=== PATIENT | male | born 1930 | race Caucasian/White ===

== ENCOUNTER 2017-03-18 11:04 | Emergency (ER) | payer OTHER ==
[~2017-03-18] VITALS: Ht 170.2 cm; Wt 50.0 kg
[~2017-03-18 11:04] MED LIST: PREV30TA3 NG; VENTAER INH
[2017-03-18 11:05] VITALS: BP 115/56; PULSE 70; RESP 16; TEMP 97.7; O2SAT 95
--- NOTE | 2017-03-18 11:26 | PD ---
HPI Chief Complaint: Chest Pain Time Seen by Provider: 11:10 Travel History International Travel<30 days: No Contact w/Intl Traveler<30days: No Traveled to known affect area: No History of Present Illness HPI Patient comes in complaining of left-sided chest pain that has been going on intermittently for a year. Patient describes pain as burning like in nature and radiates into his abdomen. Patient denies doing anything for this. Denies anything making it better or worse. Patient states pain got worse last night which is why he came to the ER today. Patient has a history of lung cancer and states he is not receiving treatment for this, because he does not want treatment for this. Patient reports associated shortness of breath. Denies any fevers, headaches, numbness or tingling anywhere, dizziness, or weakness. PFSH Past Medical History Hx Anticoagulant Therapy: No Arthritis: Yes Asthma: No Autoimmune Disease: No Blood Disorders: No Heart Rhythm Problems: No Cancer: Yes (THROAT, LUNG) Cardiac Catheterization: Yes Cardiovascular Problems: Yes High Cholesterol: Yes Chemotherapy: Yes Chest Pain: Yes Congestive Heart Failure: No COPD: Yes Cerebrovascular Accident: No Coronary Artery Disease: Yes Diabetes: No Diminished Hearing: No Endocrine: No GERD: Yes Glaucoma: No Genitourinary: No Headaches: No Hepatitis: No Hiatal Hernia: No Heparin Induced Thrombocytopen: Yes Hypertension: Yes Immune Disorder: No Kidney Stones: No Medical other: Yes (DJD) Musculoskeletal: Yes Neurologic: No Psychiatric: No Reproductive: No Respiratory: No Immunizations Current: Yes Migraines: No Myocardial Infarction: Yes Pancreatitis: Yes Radiation Therapy: No Renal Failure: No Seizures: No Sickle Cell Disease: No Sleep Apnea: No Thyroid Disease: No Ulcer: Yes Influenza Vaccination: No PNEUMOCCOCAL Vaccine (Year): 2 Past Surgical History Abdominal Surgery: Yes (appendectomy, G TUBE INSERTED) AICD: No Appendectomy: Yes Arteriovenous Shunt: No Cardiac Surgery: Yes (TRIPLE BYPASS 2006) Cholecystectomy: No Coronary Artery Bypass Graft: Yes (TRIPLE BYPASS) Ear Surgery: No Endocrine Surgery: No Eye Surgery: No Genitourinary Surgery: No Gynecologic Surgery: No Insulin Pump: No Joint Replacement: No Neurologic Surgery: No Oral Surgery: No Pacemaker: No Thoracic Surgery: No Other Surgery: Yes (CABG, APPENDECTOMY) Social History Alcohol Use: No Tobacco Use: Yes (1 PPD) Substance Use: No Allergies-Medications (Allergen,Severity, Reaction): Coded Allergies: levofloxacin (Unverified Allergy, Severe, Itching, 03/18/17) Reported Meds & Prescriptions Reported Meds & Active Scripts Active Tylenol-Codeine #3 (Acetaminophen-Codeine) 300-30 mg Tab 1 Tab PO Q12HR PRN Review of Systems Except as stated in HPI: all other systems reviewed are Neg Physical Exam Narrative GENERAL: Well-developed, under nourished, in no acute distress, and non-ill appearing. SKIN: Focused skin assessment warm and dry. HEAD: Atraumatic. Normocephalic. EYES: Pupils equal and round. EOMI. No scleral icterus. No injection or drainage. ENT: No nasal bleeding or discharge. Mucous membranes pink and moist. NECK: Trachea midline. Supple. No nuclear rigidity. CARDIOVASCULAR: Regular rate and rhythm. Murmur appreciated. RESPIRATORY: No accessory muscle use. No respiratory distress. Scant wheezing throughout. Breath sounds equal bilaterally. GASTROINTESTINAL: Abdomen soft, non-tender, nondistended, and no guarding. Hepatic and splenic margins not palpable. Normal bowel sounds 4. No pulsatile mass. MUSCULOSKELETAL: No obvious deformities. No clubbing. No cyanosis. No edema. Full range of motion. NEUROLOGICAL: Awake and alert. No obvious cranial nerve deficits. Motor grossly within normal limits. Normal speech. PSYCHIATRIC: Appropriate mood and affect; insight and judgment normal. Data Data Last Documented VS Vital Signs Date Time Temp Pulse Resp B/P (MAP) Pulse Ox O2 Delivery O2 Flow Rate FiO2 03/18/17 13:36 03/18/17 11:05 97.7 70 16 95 Orders Orders Electrocardiogram (03/18/17 ) Electrocardiogram (03/18/17 11:20) Ckmb (Isoenzyme) Profile (03/18/17 11:20) Complete Blood Count With Diff (03/18/17 11:20) Comprehensive Metabolic Panel (03/18/17 11:20) Magnesium (Mg) (03/18/17 11:20) Prothrombin Time / Inr (Pt) (03/18/17 11:20) Act Partial Throm Time (Ptt) (03/18/17 11:20) Troponin I (03/18/17 11:20) Lipase (03/18/17 11:20) Chest, Single Ap (03/18/17 11:20) Ecg Monitoring (03/18/17 11:20) Bilateral Bp Monitoring (03/18/17 11:20) Iv Access Insert/Monitor (03/18/17 11:20) Oximetry (03/18/17 11:20) Oxygen Administration (03/18/17 11:20) Sodium Chloride 0.9% Flush (Ns Flush) (03/18/17 11:30) Famotidine Inj (Pepcid Inj) (03/18/17 11:30) Aspirin Chew (Aspirin Chew) (03/18/17 11:30) Morphine Inj (Morphine Inj) (03/18/17 11:30) Ed Discharge Order (03/18/17 12:49) Labs Laboratory Tests Test 03/18/17 11:28 White Blood Count 7.3 TH/MM3 Red Blood Count 2.72 MIL/MM3 Hemoglobin 9.3 GM/DL Hematocrit 28.2 % Mean Corpuscular Volume 103.4 FL Mean Corpuscular Hemoglobin 34.1 PG Mean Corpuscular Hemoglobin Concent 32.9 % Red Cell Distribution Width 14.6 % Platelet Count 118 TH/MM3 Mean Platelet Volume 11.3 FL Neutrophils (%) (Auto) 82.4 % Lymphocytes (%) (Auto) 9.4 % Monocytes (%) (Auto) 5.9 % Eosinophils (%) (Auto) 1.6 % Basophils (%) (Auto) 0.7 % Neutrophils # (Auto) 6.0 TH/MM3 Lymphocytes # (Auto) 0.7 TH/MM3 Monocytes # (Auto) 0.4 TH/MM3 Eosinophils # (Auto) 0.1 TH/MM3 Basophils # (Auto) 0.1 TH/MM3 CBC Comment DIFF FINAL Differential Comment Prothrombin Time 10.7 SEC Prothromb Time International Ratio 1.0 RATIO Activated Partial Thromboplast Time 29.3 SEC Blood Urea Nitrogen 45 MG/DL Creatinine 1.15 MG/DL Random Glucose 108 MG/DL Total Protein 7.0 GM/DL Albumin 2.9 GM/DL Calcium Level 8.5 MG/DL Magnesium Level 2.6 MG/DL Alkaline Phosphatase 213 U/L Aspartate Amino Transf (AST/SGOT) 41 U/L Alanine Aminotransferase (ALT/SGPT) 50 U/L Total Bilirubin 0.3 MG/DL Sodium Level 138 MEQ/L Potassium Level 4.8 MEQ/L Chloride Level 106 MEQ/L Carbon Dioxide Level 26.1 MEQ/L Anion Gap 6 MEQ/L Estimat Glomerular Filtration Rate 60 ML/MIN Total Creatine Kinase 56 U/L Troponin I 0.03 NG/ML Lipase 313 U/L MDM Medical Decision Making Medical Screen Exam Complete: Yes Emergency Medical Condition: Yes Interpretation(s) EKG reviewed by Dr. Whiting shows sinus rhythm with ventricular 62. No STEMI. Last Impressions Chest X-Ray 03/18/17 1120 Signed Impressions: Service Date/Time: Saturday, March 18, 2017 11:34 - CONCLUSION: No acute disease. Chronic scarring is again noted in the lung apices. Alex Bautista MD Differential Diagnosis Acute coronary syndrome, pancreatitis, pneumonia, metabolic disturbance, chronic pain, other Narrative Course Patient in no obvious distress upon re-evaluation. All pertinent laboratory/ Radiology result(s) discussed with patient. Discussed patient with Dr. Whiting, who saw and evaluated the patient and found patient is just wanting pain control and recommends if labs are at patient's baseline to give patient prescription for short course of pain medication until he is able get back in with his primary care doctor. Labs appear at his baseline and some have improved from previous visit. Patient given prescription for Tylenol 3 for pain control. Any questions/concerns in reference to patient diagnosis/ condition discussed and clarified prior to patient's discharge. Reinforced sheer importance of close follow up with patient's primary physician or primary care clinic. Instructed patient to return to ED immediately, if symptoms return/ worsen. Patient showed understanding of above instructions. Further instructions and recommendations were detailed in discharge paperwork. Patient ambulated without difficulty out of ED at discharge. Diagnosis Primary Impression: Chronic pain Qualified Codes: G89.3 - Neoplasm related pain (acute) (chronic) Patient Instructions: Chronic Pain (ED), General Instructions Additional Instructions: Follow-up with your primary care physician this week for additional pain control. Take all medication as prescribed. Return to the emergency department if symptoms get worse. Med/Other Pt SpecificInfo: Prescription(s) given Scripts Acetaminophen-Codeine (Tylenol-Codeine #3) 300-30 mg Tab 1 TAB PO Q12HR Y for PAIN, #7 TAB 0 Refills Prov: Sheeba Whiting MD 03/18/17 Disposition: 01 DISCHARGE HOME Condition: Stable Jose Cruz Bernal Mar 18, 2017 11:26
[2017-03-18] MEDS ORDERED: ASPIRIN 81 MG CHEW TAB PO ONE (11:30)
[2017-03-18] MEDS ORDERED: SODIUM CHLORIDE 0.9% FLUSH 10 ML FLUSH IVF PRN (11:30)
[2017-03-18] MEDS ORDERED: FAMOTIDINE 20 MG/2 ML VIAL IV PUSH ONE (11:30)
[2017-03-18] MEDS ORDERED: MORPHINE SULFATE 2 MG/ML INJ IV PUSH ONE (11:30)
--- NOTE | 2017-03-18 11:34 | PD ---
Physical Exam Date Seen by Provider: Mar 18, 2017 Time Seen by Provider: 11:20 Narrative This patient presents with chest pain which is been going on for over a year. He was seen here in December 2015 for same. Admission to the chest pain center was offered but declined. I asked the patient what he was hoping to gain from his visit with us today. He reports that he is here for pain control. He states that he has been out of his pain medication for a long time. He states that he is normally prescribed pain medication through the [facility]. He states that he has been told that he is too old to undergo any aggressive treatment. Therefore, he is not interested in admission to the hospital. The patient also reports to me that he would like for us to check his feeding tube. He states that the feeding tube has been in for a long time and nobody is checked it. He states that he has never cleaned around it at home himself. He reports that he gets all of his nutrition through the feeding tube due to dysphagia. Data Data Last Documented VS Vital Signs Date Time Temp Pulse Resp B/P (MAP) Pulse Ox O2 Delivery O2 Flow Rate FiO2 03/18/17 11:05 97.7 70 16 115/56 (75) 95 Orders Orders Electrocardiogram (03/18/17 ) Electrocardiogram (03/18/17 11:20) Ckmb (Isoenzyme) Profile (03/18/17 11:20) Complete Blood Count With Diff (03/18/17 11:20) Comprehensive Metabolic Panel (03/18/17 11:20) Magnesium (Mg) (03/18/17 11:20) Prothrombin Time / Inr (Pt) (03/18/17 11:20) Act Partial Throm Time (Ptt) (03/18/17 11:20) Troponin I (03/18/17 11:20) Lipase (03/18/17 11:20) Chest, Single Ap (03/18/17 11:20) Ecg Monitoring (03/18/17 11:20) Bilateral Bp Monitoring (03/18/17 11:20) Iv Access Insert/Monitor (03/18/17 11:20) Oximetry (03/18/17 11:20) Oxygen Administration (03/18/17 11:20) Sodium Chloride 0.9% Flush (Ns Flush) (03/18/17 11:30) Famotidine Inj (Pepcid Inj) (03/18/17 11:30) Aspirin Chew (Aspirin Chew) (03/18/17 11:30) Morphine Inj (Morphine Inj) (03/18/17 11:30) MDM Medical Record Reviewed: Yes Supervised Visit with KYLEE: Yes Narrative Course I, Dr. Whiting, have reviewed the advance practice practitioner's documentation and am in agreement, met with the patient face to face, made the diagnosis, and the medical decision making was done by me. *My assessment and Findings: This is a thin, cachectic, disheveled, chronically ill-appearing man who does not appear to be in any acute distress. He has caked old skin and skin oils around his feeding tube. However, there is no purulent drainage and no surrounding skin is not red or hot. Our plan will be to control his pain. He will then be discharged with instructions to follow up at the [facility] for continued pain management. Please see Rod Bernal PA-C's note for results of laboratory and radiographic evaluation, ED course, final diagnosis and disposition Scripts No Active Prescriptions or Reported Meds Sheeba Whiting MD Mar 18, 2017 11:34
[2017-03-18 11:44] LABS: BASOPHIL # 0.1 TH/MM3 (0-0.2); BASOPHIL % 0.7 % (0.0-2.0); EOSINOPHIL # 0.1 TH/MM3 (0-0.4); EOSINOPHIL % 1.6 % (0.0-4.0); HEMATOCRIT 28.2 % (39.0-51.0); HEMOGLOBIN 9.3 GM/DL (13.0-17.0); LYMPH % 9.4 % (9.0-44.0); LYMPHOCYTE # 0.7 TH/MM3 (1.0-4.8); MEAN CELL VOLUME 103.4 FL (80.0-100.0); MEAN CORPUSCULAR HEMOGLOBIN 34.1 PG (27.0-34.0); MEAN CORPUSCULAR HGB CONC 32.9 % (32.0-36.0); MEAN PLATELET VOLUME 11.3 FL (7.0-11.0); MONO % 5.9 % (0.0-8.0); MONOCYTE # 0.4 TH/MM3 (0-0.9); NEUT % 82.4 % (16.0-70.0); PLATELET COUNT 118 TH/MM3 (150-450); RED BLOOD COUNT 2.72 MIL/MM3 (4.50-5.90); RED CELL DISTRIBUTION WIDTH 14.6 % (11.6-17.2); WHITE BLOOD COUNT 7.3 TH/MM3 (4.0-11.0)
[2017-03-18 11:57] LABS: PROTHROMBIN TIME - PATIENT 10.7 SEC (9.8-11.6)
[2017-03-18 12:06] LABS: ALBUMIN 2.9 GM/DL (3.4-5.0); ALT (GPT) 50 U/L (12-78); AST (GOT) 41 U/L (15-37); BICARBONATE 26.1 MEQ/L (21.0-32.0); BLOOD UREA NITROGEN 45 MG/DL (7-18); CALCIUM 8.5 MG/DL (8.5-10.1); CHLORIDE 106 MEQ/L (98-107); CREATININE 1.15 MG/DL (0.60-1.30); GLOMERULAR FILTRATION RATE 60 ML/MIN (>89); GLUCOSE,RANDOM 108 MG/DL (74-106); LIPASE 313 U/L (73-393); MAGNESIUM 2.6 MG/DL (1.5-2.5); SODIUM (NA) 138 MEQ/L (136-145)
[2017-03-18 12:10] LABS: ALKALINE PHOSPHATASE 213 U/L (45-117); TOTAL BILIRUBIN ADULT 0.3 MG/DL (0.2-1.0); TROPONIN I 0.03 NG/ML (0.02-0.05)
--- NOTE | 2017-03-18 12:13 | RADRPT ---
EXAM DATE/TIME: 03/18/2017 11:34 [facility] COMPARISON: CHEST SINGLE AP, April 14, 2016, 9:06. INDICATIONS : Chest pain. MEDICAL HISTORY : Cardiovascular disease. SURGICAL HISTORY : CABG. ENCOUNTER: Initial ACUITY: 1 day PAIN SCORE: 7/10 LOCATION: Bilateral chest FINDINGS: A single view of the chest demonstrates the lungs to be symmetrically aerated without evidence of mas s, infiltrate or effusion. Biapical pleural-parenchymal changes again noted consistent with scarring. The cardiomediastinal contours are unremarkable. Osseous structures are intact. The patient is sta tus post median sternotomy. There is a mild scoliosis with degenerative changes. CONCLUSION: No acute disease. Chronic scarring is again noted in the lung apices. Alex Bautista MD on March 18, 2017 at 12:10 Board Certified Radiologist. This report was verified electronically.
[2017-03-18] MEDS ORDERED: TYLETAB34 PO (12:48)
--- NOTE | 2017-03-19 12:18 | EKG ---
Date Performed: 03/18/2017 Time Performed: 11:22:26 PTAGE: 86 years EKG: Sinus rhythm MARKED LEFT AXIS DEVIATION ABNORMAL ECG Compared to prior tracing no significant change PREVIOUS TRACING : 01/08/2016 15.11 DOCTOR: Mahin Camilo Interpretating Date/Time 03/19/2017 12:13:38
== END 2017-03-18 13:36 | disposition home or self-care (01) ==
LOC: NEPE 11:04
DX: G89.3 Neoplasm related pain (acute) (chronic) (principal); R06.02 Shortness of breath; J44.9 Chronic obstructive pulmonary disease, unspecified; I10 Essential (primary) hypertension; K21.9 Gastro-esophageal reflux disease without esophagitis; R94.31 Abnormal electrocardiogram [ECG] [EKG]; Z72.0 Tobacco use
CPT/HCPCS: 71010; 80053; 82550; 83690; 83735; 84484; 85025; 85610; 85730; 93005; 96374; 96375; 99285; J2270

== ENCOUNTER 2017-04-11 12:50 | Inpatient (IN) | payer OTHER ==
[~2017-04-11] VITALS: Ht 167.6 cm; Wt 52.5 kg
[2017-04-11] VITALS (16 sets, daily range): BP systolic 140–165; BP diastolic 63–90; PULSE 65–80; RESP 13–20; TEMP 97.8–98.5; O2SAT 95–100
[~2017-04-11 12:50] MED LIST changes: -PREV30TA3 NG; +TYLETAB34 PO; -VENTAER INH
[2017-04-11] MEDS ORDERED: ONDANSETRON HCL 4 MG/2 ML VIAL IV PUSH ONE (13:15)
[2017-04-11] MEDS ORDERED: SODIUM CHLORID 0.9% 500 ML INJ 500 ML IV ONE ×2 (13:15→17:15)
[2017-04-11] MEDS ORDERED: SODIUM CHLORIDE 0.9% FLUSH 10 ML FLUSH IV FLUSH PRN ×2 (13:15→16:30)
--- NOTE | 2017-04-11 13:20 | PD ---
HPI Chief Complaint: Pain: Acute or Chronic Time Seen by Provider: 13:05 Travel History International Travel<30 days: No Contact w/Intl Traveler<30days: No Traveled to known affect area: No History of Present Illness HPI 86-year-old thin, chronically ill-appearing male presents to the emergency department for evaluation of bilateral chest pain. Patient states he has been having this chest pain for over a year. He states that he has lung cancer and does not have any pain medication. He states that his primary care physician has not prescribed him any pain medication. 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 Patient states he is not undergoing any chemotherapy or radiation therapy. He states that he is too elderly for any aggressive treatment. The patient apparently was with the roommates and they got into an argument. The patient states that he feels safe at his house. He denies any fevers or chills. He reports chronic vomiting and chronic abdominal pain as well. Patient states he is not currently on any prescribed medications. Severity is moderate. No alleviating or exacerbating factors. PFSH Past Medical History Hx Anticoagulant Therapy: No Arthritis: Yes Asthma: No Autoimmune Disease: No Blood Disorders: No Heart Rhythm Problems: No Cancer: Yes (THROAT, LUNG) Cardiac Catheterization: Yes Cardiovascular Problems: Yes High Cholesterol: Yes Chemotherapy: Yes Chest Pain: Yes Congestive Heart Failure: No COPD: Yes Cerebrovascular Accident: No Coronary Artery Disease: Yes Diabetes: No Diminished Hearing: No Endocrine: No GERD: Yes Glaucoma: No Genitourinary: No Headaches: No Hepatitis: No Hiatal Hernia: No Heparin Induced Thrombocytopen: Yes Hypertension: Yes Immune Disorder: No Kidney Stones: No Medical other: Yes (DJD) Musculoskeletal: Yes Neurologic: No Psychiatric: No Reproductive: No Respiratory: Yes (LUNG CANCER) Immunizations Current: Yes Migraines: No Myocardial Infarction: Yes Pancreatitis: Yes Radiation Therapy: No Renal Failure: No Seizures: No Sickle Cell Disease: No Sleep Apnea: No Thyroid Disease: No Ulcer: Yes Tetanus Vaccination: Never Vaccinated PNEUMOCCOCAL Vaccine (Year): 2 Past Surgical History Abdominal Surgery: Yes (appendectomy, G TUBE INSERTED) AICD: No Appendectomy: Yes Arteriovenous Shunt: No Cardiac Surgery: Yes (TRIPLE BYPASS 2006) Cholecystectomy: No Coronary Artery Bypass Graft: Yes (TRIPLE BYPASS) Ear Surgery: No Endocrine Surgery: No Eye Surgery: No Genitourinary Surgery: No Gynecologic Surgery: No Insulin Pump: No Joint Replacement: No Neurologic Surgery: No Oral Surgery: No Pacemaker: No Thoracic Surgery: No Other Surgery: Yes (CABG, APPENDECTOMY) Social History Alcohol Use: No Tobacco Use: Yes (1 PPD) Substance Use: No Allergies-Medications (Allergen,Severity, Reaction): Coded Allergies: levofloxacin (Unverified Adverse Reaction, Mild, Itching, 04/11/17) Reported Meds & Prescriptions Reported Meds & Active Scripts Active Tylenol-Codeine #3 (Acetaminophen-Codeine) 300-30 mg Tab 1 Tab PO Q12HR PRN Review of Systems Except as stated in HPI: all other systems reviewed are Neg Physical Exam Narrative GENERAL: Thin, chronically ill-appearing elderly male patient, afebrile. SKIN: Focused skin assessment warm/dry. HEAD: Normocephalic. Atraumatic. EYES: No scleral icterus. No injection or drainage. NECK: Supple, trachea midline. No JVD or lymphadenopathy. CARDIOVASCULAR: Regular rate and rhythm without murmurs, gallops, or rubs. RESPIRATORY: Breath sounds equal bilaterally. No accessory muscle use. Lungs sounds are clear to auscultation. GASTROINTESTINAL: Abdomen soft and nondistended. He has generalized tenderness to palpation. MUSCULOSKELETAL: No cyanosis, or edema. BACK: Nontender without obvious deformity. No CVA tenderness. RECTAL EXAM: No masses or tenderness, stool is dark, tarry. Hemoccult is positive. This exam was done with RN at bedside. Data Data Last Documented VS Vital Signs Date Time Temp Pulse Resp B/P (MAP) Pulse Ox O2 Delivery O2 Flow Rate FiO2 04/11/17 15:50 70 18 140/63 (88) 96 Nasal Cannula 2.00 04/11/17 13:11 98.4 Orders Orders Complete Blood Count With Diff (04/11/17 13:08) Comprehensive Metabolic Panel (04/11/17 13:08) Lipase (04/11/17 13:08) Prothrombin Time / Inr (Pt) (04/11/17 13:08) Act Partial Throm Time (Ptt) (04/11/17 13:08) Urinalysis - C+S If Indicated (04/11/17 13:08) Iv Access Insert/Monitor (04/11/17 13:08) Ecg Monitoring (04/11/17 13:08) Oximetry (04/11/17 13:08) Sodium Chloride 0.9% Flush (Ns Flush) (04/11/17 13:15) Electrocardiogram (04/11/17 13:08) Creatine Kinase (Cpk) (04/11/17 13:08) Troponin I (04/11/17 13:08) Sodium Chlorid 0.9% 500 Ml Inj (Ns 500 M (04/11/17 13:15) Ondansetron Inj (Zofran Inj) (04/11/17 13:15) Chest, Single Ap (04/11/17 ) Ct Abd/Pel W Iv Contrast(Rout) (04/11/17 ) Morphine Inj (Morphine Inj) (04/11/17 13:30) Type And Screen (04/11/17 14:08) Red Blood Cells (Rbc) (04/11/17 14:08) Blood Product Administration (04/11/17 14:08) Sodium Chlor 0.9% 250 Ml Inj (Ns 250 Ml (04/11/17 14:15) Pantoprazole Inj (Protonix Inj) (04/11/17 14:15) Calcium Gluconate Inj (Calcium Gluconate (04/11/17 14:15) Insulin Human Regular Inj (Novolin R Inj (04/11/17 14:30) Dextrose 50% In [place] (Vial) Inj (D50w (Vi (04/11/17 14:15) Sodium Bicarbonate 8.4% Inj (Sodium Bica (04/11/17 14:15) Albuterol Concentrated Neb (Albuterol Co (04/11/17 14:30) Labs Laboratory Tests Test 04/11/17 13:16 04/11/17 14:15 White Blood Count 13.2 TH/MM3 Red Blood Count 1.27 MIL/MM3 Hemoglobin 4.5 GM/DL Hematocrit 14.1 % Mean Corpuscular Volume 111.4 FL Mean Corpuscular Hemoglobin 35.4 PG Mean Corpuscular Hemoglobin Concent 31.8 % Red Cell Distribution Width 18.7 % Platelet Count 122 TH/MM3 Mean Platelet Volume 11.1 FL Neutrophils (%) (Auto) 91.0 % Lymphocytes (%) (Auto) 3.4 % Monocytes (%) (Auto) 5.4 % Eosinophils (%) (Auto) 0.1 % Basophils (%) (Auto) 0.1 % Neutrophils # (Auto) 12.1 TH/MM3 Lymphocytes # (Auto) 0.5 TH/MM3 Monocytes # (Auto) 0.7 TH/MM3 Eosinophils # (Auto) 0.0 TH/MM3 Basophils # (Auto) 0.0 TH/MM3 CBC Comment AUTO DIFF Differential Total Cells Counted 100 Neutrophils % (Manual) 86 % Band Neutrophils % 6 % Lymphocytes % 6 % Monocytes % 2 % Neutrophils # (Manual) 12.1 TH/MM3 Differential Comment FINAL DIFF MANUAL Platelet Estimate LOW Platelet Morphology Comment NORMAL Polychromasia 3.0 % Prothrombin Time 11.2 SEC Prothromb Time International Ratio 1.0 RATIO Activated Partial Thromboplast Time 25.0 SEC Blood Urea Nitrogen 79 MG/DL Creatinine 1.52 MG/DL Random Glucose 111 MG/DL Total Protein 5.9 GM/DL Albumin 2.4 GM/DL Calcium Level 7.7 MG/DL Alkaline Phosphatase 150 U/L Aspartate Amino Transf (AST/SGOT) 44 U/L Alanine Aminotransferase (ALT/SGPT) 57 U/L Total Bilirubin 0.3 MG/DL Sodium Level 140 MEQ/L Potassium Level 5.5 MEQ/L Chloride Level 111 MEQ/L Carbon Dioxide Level 22.8 MEQ/L Anion Gap 6 MEQ/L Estimat Glomerular Filtration Rate 44 ML/MIN Total Creatine Kinase 92 U/L Troponin I 0.63 NG/ML Lipase 252 U/L Urine Color YELLOW Urine Turbidity CLEAR Urine pH 5.0 Urine Specific [place] 1.017 Urine Protein 30 mg/dL Urine Glucose (UA) NEG mg/dL Urine Ketones NEG mg/dL Urine Occult Blood NEG Urine Nitrite NEG Urine Bilirubin NEG Urine Urobilinogen LESS THAN 2.0 MG/DL Urine Leukocyte Esterase NEG Urine RBC LESS THAN 1 /hpf Urine WBC 1 /hpf Urine Squamous Epithelial Cells <1 /hpf Urine Hyaline Casts 10 /lpf Urine Mucus FEW /lpf Microscopic Urinalysis Comment CULT NOT INDICATED MDM Medical Decision Making Medical Screen Exam Complete: Yes Emergency Medical Condition: Yes Medical Record Reviewed: Yes Interpretation(s) chest x-ray - CONCLUSION: 1. No acute abnormality or significant interval change. CT abdomen/pelvis - CONCLUSION: Patient's had a cholecystectomy and likely ERCP with some air in the biliary tree. No free fluid or or free air is identified. The mesenteric vein is quite tortuous new since December 2014 of uncertain significance. G-tube in good position. Air space disease right lower lobe atelectasis versus pneumonia Differential Diagnosis chronic pain vs. pneumonia vs. ACS vs. electrolyte abnormality vs. dehydration vs. pancreatitis vs. diverticulitis vs. UTI vs. pyelonephritis Narrative Course 86-year-old male presents to the emergency department for evaluation of bilateral chest pain for 1 year. On exam, he also has diffuse tenderness to palpation throughout his abdomen. He reports history of throat cancer and has lung cancer as well. He is not currently undergoing treatment. EKG, CBC, CMP, Lipase, CK, Troponin, PTT, PT/INR, UA, chest x-ray are ordered and pending. CT abdomen/pelvis with IV contrast are ordered and pending. EKG shows SR, no STEMI. CBC shows hemoglobin 4.5, hematocrit 14.1, WBC 13.2. CMP shows hyperkalemia of 5.5, BUN 79, creatinine 1.5 to. Lipase is 252. CK is 92. Troponin is 0.63. Coags are unremarkable. UA [-]. Chest x-ray shows no acute abnormality or significant interval change. CT abdomen/pelvis shows patient's had a cholecystectomy and likely ERCP with some air in the biliary tree. No free fluid or or free air is identified. The mesenteric vein is quite tortuous new since December 2014 of uncertain significance. G-tube in good position. Air space disease right lower lobe atelectasis versus pneumonia Patient is given packed red blood cells 2 units. He is given calcium gluconate 1 g IV, insulin 10 units IV, and 1 amp of dextrose, 1 amp of sodium bicarbonate for hyperkalemia. He is given Protonix 40 mg IV push. Patient agrees to admission. Dr. Hawley accepted admission. [facility] Point of Care Internal Pos. & Neg. Controls: Passed Fecal Specimen Occult Blood: Positive Diagnosis Primary Impression: GI bleed Qualified Codes: K92.2 - Gastrointestinal hemorrhage, unspecified Additional Impressions: Anemia Qualified Codes: D64.9 - Anemia, unspecified Chest pain Qualified Codes: R07.9 - Chest pain, unspecified Hyperkalemia Elevated troponin Admitting Information Admitting Physician Requests: Admit Nicole Stanely Apr 11, 2017 13:20
[2017-04-11] MEDS ORDERED: MORPHINE SULFATE 2 MG/ML INJ IV PUSH ONE (13:30)
--- NOTE | 2017-04-11 13:58 | RADRPT ---
EXAM DATE/TIME: 04/11/2017 13:27 [facility] COMPARISON: CHEST SINGLE AP, March 18, 2017, 11:34. INDICATIONS : Short of breath with mid sternal chest pains. MEDICAL HISTORY : Myocardial infarction. Congestive heart failure. SURGICAL HISTORY : CABG. ENCOUNTER: Initial ACUITY: 2 days PAIN SCORE: 5/10 LOCATION: Bilateral chest FINDINGS: Biapical parenchymal scarring similar to prior exam. No new focal pleural or parenchymal opacities. S table median sternotomy wires. The cardiomediastinal contours are unremarkable. Osseous structures a re intact. CONCLUSION: 1. No acute abnormality or significant interval change. Mitch Nugent MD on April 11, 2017 at 13:56 Board Certified Radiologist. This report was verified electronically.
[2017-04-11 13:59] LABS: AUTOMATED NEUTROPHIL # 12.1 TH/MM3 (1.8-7.7); BASOPHIL % 0.1 % (0.0-2.0); EOSINOPHIL % 0.1 % (0.0-4.0); LYMPH % 3.4 % (9.0-44.0); LYMPHOCYTE # 0.5 TH/MM3 (1.0-4.8); MEAN CELL VOLUME 111.4 FL (80.0-100.0); MEAN CORPUSCULAR HEMOGLOBIN 35.4 PG (27.0-34.0); MEAN CORPUSCULAR HGB CONC 31.8 % (32.0-36.0); MONO % 5.4 % (0.0-8.0); PLATELET COUNT 122 TH/MM3 (150-450); RED BLOOD COUNT 1.27 MIL/MM3 (4.50-5.90); RED CELL DISTRIBUTION WIDTH 18.7 % (11.6-17.2); WHITE BLOOD COUNT 13.2 TH/MM3 (4.0-11.0)
[2017-04-11 14:02] LABS: HEMO FLAGS AUTO DIFF
[2017-04-11 14:07] LABS: ANION GAP 6 MEQ/L (5-15); AST (GOT) 44 U/L (15-37); BICARBONATE 22.8 MEQ/L (21.0-32.0); BLOOD UREA NITROGEN 79 MG/DL (7-18); CHLORIDE 111 MEQ/L (98-107); GLOMERULAR FILTRATION RATE 44 ML/MIN (>89); POTASSIUM 5.5 MEQ/L (3.5-5.1); PROTHROMBIN TIME - PATIENT 11.2 SEC (9.8-11.6); SODIUM (NA) 140 MEQ/L (136-145)
[2017-04-11 14:08] LABS: HEMATOCRIT 14.1 % (39.0-51.0)
[2017-04-11 14:12] LABS: ALKALINE PHOSPHATASE 150 U/L (45-117); ALT (GPT) 57 U/L (12-78); TOTAL BILIRUBIN ADULT 0.3 MG/DL (0.2-1.0)
[2017-04-11] MEDS ORDERED: CALCIUM GLUCONATE 10% 1 GM/10 ML VIAL SLOW IVP ONE (14:15)
[2017-04-11] MEDS ORDERED: PANTOPRAZOLE SODIUM 40 MG VIAL IV PUSH ONE (14:15)
[2017-04-11] MEDS ORDERED: SODIUM BICARBONATE 8.4% SOLN 50 MEQ/50 ML VIAL SLOW IVP ONE (14:15)
[2017-04-11] MEDS ORDERED: DEXTROSE 50% IN WATER 50 ML VIAL(D50) IV PUSH ONE (14:15)
[2017-04-11] MEDS ORDERED: SODIUM CHLOR 0.9% 250 ML INJ 250 ML IV ONE (14:15)
[2017-04-11] MEDS ORDERED: INSULIN HUMAN REGULAR 1,000 UNITS/10 ML VIAL IV PUSH ONE (14:30)
[2017-04-11] MEDS ORDERED: RESP: ALBUTEROL CONC 2.5 MG/0.5 ML NEB INH ONE (14:30)
[2017-04-11 14:32] LABS: CREATINE KINASE 92 U/L (39-308)
[2017-04-11] MEDS ORDERED: IOHEXOL 350 MG/ML 10 ML VIAL (for RAD DIAG) IVCONTRAST ONE (14:36)
[2017-04-11 14:42] LABS: BANDS 6 % (0-6); NEUTROPHIL # MANUAL DIFF 12.1 TH/MM3 (1.8-7.7); POLYS (SEG NEUTROPHILS) 86 % (16-70); WBC DIFF SAMPLE 100
[2017-04-11 14:43] LABS: PLATELET ESTIMATE SMEAR LOW (NORMAL); PLATELET MORPHOLOGY NORMAL (NORMAL); SCAN/DIFF FINAL DIFF MANUAL
--- NOTE | 2017-04-11 14:58 | RADRPT ---
EXAM DATE/TIME: 04/11/2017 14:36 [facility] COMPARISON: No previous studies available for comparison. INDICATIONS : Increasing chest and abdominal pain for one year. IV CONTRAST: 86 cc Omnipaque 350 (iohexol) IV ORAL CONTRAST: No oral contrast ingested. RADIATION DOSE: 5.10 CTDIvol (mGy) MEDICAL HISTORY : Cardiovascular disease. Hypertension. Ulcer, Pancreatitis, Lung cancer. SURGICAL HISTORY : Appendectomy. ENCOUNTER: Initial ACUITY: 1 day PAIN SCALE: 4/10 LOCATION: general abdomen TECHNIQUE: Volumetric scanning of the abdomen and pelvis was performed. Using automated exposure control and ad justment of the mA and/or kV according to patient size, radiation dose was kept as low as reasonably achievable to obtain optimal diagnostic quality images. DICOM format image data is available electro nically for review and comparison. FINDINGS: LOWER LUNGS: Mild infiltrate in the right lung base LIVER: Homogeneous density without lesion. There is no dilation of the biliary tree. Cholecystectomy clips. There is air in the biliary tree related to previous ERCP. SPLEEN: Normal size without lesion. PANCREAS: Within normal limits. KIDNEYS: Normal in size and shape. There is no mass, stone or hydronephrosis. ADRENAL GLANDS: Within normal limits. VASCULAR: There is no aortic aneurysm. BOWEL/MESENTERY: There is marked tortuosity of the mesenteric veins increased since the previous study in 2014 . The G-tube is in place. The stomach, small bowel, and colon demonstrate no acute abnormality. There is n o free intraperitoneal air or fluid. ABDOMINAL WALL: Within normal limits. RETROPERITONEUM: There is no lymphadenopathy. BLADDER: No wall thickening or mass. REPRODUCTIVE: Within normal limits. INGUINAL: There is no lymphadenopathy or hernia. MUSCULOSKELETAL: Within normal limits for patient age. CONCLUSION: Patient's had a cholecystectomy and likely ERCP with some air in the biliary tree. No free fluid or o r free air is identified. The mesenteric vein is quite tortuous new since December 2014 of uncertain si gnificance. G-tube in good position. Air space disease right lower lobe atelectasis versus pneumonia Harry Dacosta MD on April 11, 2017 at 14:50 Board Certified Radiologist. This report was verified electronically.
[2017-04-11 15:10] LABS: BLOOD, URINE NEG (NEG); COMMENT (UR) CULT NOT INDICATED; CULTURE IF INDICATED CULT NOT INDICATED; GLUCOSE,URINE NEG (NEG); HYALINE CAST, URINE 10 /lpf (RARE); KETONE, URINE NEG (NEG); MUCUS URINE FEW /lpf (OCC); NITRITE,URINE NEG (NEG); SQUAMOUS EPITHELIAL CELL URINE <1 /hpf (0-5); URINE COLOR YELLOW (YELLW/STRAW)
[2017-04-11] MEDS: SODIUM CHLOR 0.9% 1000 ML INJ 1,000 ML IV SCH ×2 (16:22→23:20)
[2017-04-11] MEDS ORDERED: RESP: ALBUTEROL 2.5 MG/IPRATROPIUM 0.5 MG NEB (PRN) INH (16:30)
[2017-04-11] MEDS ORDERED: BISACODYL 10 MG SUPP RECTAL PRN (16:30)
[2017-04-11] MEDS ORDERED: CHLORHEXIDINE GLUCONATE 2 % 1 PACK (2 CLOTHS) TOP PRN (16:30)
[2017-04-11] MEDS ORDERED: MISCELLANEOUS NURSING INFORMATION XX SCH (16:30)
[2017-04-11] MEDS ORDERED: SENNOSIDES 8.6 MG TAB PO PRN (16:30)
[2017-04-11] MEDS ORDERED: ONDANSETRON HCL 4 MG/2 ML VIAL IV PUSH PRN (16:30)
[2017-04-11] MEDS ORDERED: MAGNESIUM HYDROXIDE SUSP 30 ML CUP PO PRN (16:30)
[2017-04-11] MEDS ORDERED: LACTULOSE SYRUP 20 GM/30 ML CUP PO PRN (16:30)
[2017-04-11] MEDS ORDERED: GLUCAGON 1 MG/ML VIAL OTHER PRN (17:15)
[2017-04-11] MEDS ORDERED: DEXTROSE 50% IN WATER 50 ML VIAL(D50) IV PUSH PRN (17:15)
--- NOTE | 2017-04-11 17:48 | RADRPT ---
EXAM DATE/TIME: 04/11/2017 17:14 [facility] COMPARISON: No previous studies available for comparison. INDICATIONS : Increasing chest pain RADIATION DOSE: 5.78 CTDIvol (mGy) MEDICAL HISTORY : Cardiovascular disease. Hypertension. Chronic obstructive pulmonary disease. Pancreatitis,throat canc er,lung cancer SURGICAL HISTORY : Appendectomy. ENCOUNTER: Initial ACUITY: 1 day PAIN SCALE: 8/10 LOCATION: chest TECHNIQUE: Volumetric scanning of the chest was performed. Using automated exposure control and adjustment of t he mA and/or kV according to patient size, radiation dose was kept as low as reasonably achievable to obtain optimal diagnostic quality images. DICOM format image data is available electronically for r eview and comparison. Follow-up recommendations for detected pulmonary nodules are based at a minimum on nodule size and pa tient risk factors according to Fleischner Society Guidelines. FINDINGS: LUNGS: There is a consolidation in the right lower lobe atelectasis versus pneumonia. In the left upper lobe there is a small cavitary lesion abutting the visceral pleura measuring 2.7 x 1[address] eural-parenchymal thickening with some infiltrate. I do not see any bony destruction. PLEURAE: There is no pleural thickening or pleural effusion. MEDIASTINUM: There are clips and wires suggesting CABG. The heart and great vessels demonstrate no acute abnormali ty. There is no mediastinal or hilar lymphadenopathy. AXILLAE: Within normal limits. No lymphadenopathy. MUSCULOSKELETAL: Within normal limits for patient age. MISCELLANEOUS: The visualized upper abdominal organs demonstrate no acute abnormality. Cholecystectomy clips CONCLUSION: 2.7 x 1.5 cm partially cavitary mass in the left upper lobe. It has a spiculated margin and abuts the visceral pleura. Malignancy certainly within the differential. Small amount of airspace disease in the posterior aspect of the right lower lobe could be area of pne umonia. Status post CABG. Harry Dacosta MD on April 11, 2017 at 17:43 Board Certified Radiologist. This report was verified electronically.
--- NOTE | 2017-04-11 17:59 | HHI.HP ---
[facility] Service Critical Care Medicine Primary Care Physician [facility] Admission Diagnosis GI bleed, anemia, hyperkalemia, elevated troponin Diagnosis: (1) Acute blood loss anemia (2) History of head and neck cancer (3) Upper GI bleeding (4) Hyperkalemia (5) Chest pain (6) Tobacco abuse (7) COPD (chronic obstructive pulmonary disease) (8) CAD (coronary artery disease) (9) Severe malnutrition (10) Dysphagia Travel History International Travel<30 Days: No Contact w/Intl Traveler <30 Da: No Traveled to Known Affected Are: No History of Present Illness This is a 86-year-old malnourished chronically ill-appearing male that presented to the ED for evaluation of bilateral chest pain. Patient states he has been having this chest pain for over a year. He states reports that he has lung cancer and stated that his medical records were here at [facility] however no records are found. The patient says that the only medications that she normally is prescribed for pain medications for his lung cancer which he does not take. The patient states that he has had episodes of nausea and vomiting he normally takes 4 cans of Jevity 1.5 daily via PEG and upon consumption today, he became nauseated and vomited which he approximates the entire amount. He states it was normal in color, no coffee ground emesis was noted.He reports chronic vomiting and chronic abdominal pain as well. 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 Patient states he is not undergoing any chemotherapy or radiation therapy for lung cancer. The patient was noted to have black tarry stools, Hemoccult positive and laboratory and imaging studies revealed a hemoglobin of 4 upon arrival to the ED . The patient was ordered 2 units PRBCs to be transfused .patient was previously admitted 04/09/11/03 with gastric ulcer GI bleeding and PEG was placed by Dr. Holden .The patient was also noted to be hyperkalemic and received insulin and D50, calcium chloride.He states that he is too elderly for any aggressive treatment. Critical care medicine was consulted. History PFSH Past Medical History Hx Anticoagulant Therapy: No Arthritis: Yes Asthma: No Autoimmune Disease: No Blood Disorders: No Heart Rhythm Problems: No Cancer: Yes (THROAT, LUNG) Cardiac Catheterization: Yes Cardiovascular Problems: Yes, mitral regurgitation High Cholesterol: Yes Chemotherapy: Yes Chest Pain: Yes Congestive Heart Failure: No COPD: Yes Cerebrovascular Accident: No Coronary Artery Disease: Yes Diabetes: No Diminished Hearing: No Endocrine: No GERD: Yes Glaucoma: No Genitourinary: No Headaches: No Hepatitis: No Hiatal Hernia: No Heparin Induced Thrombocytopenia: Yes Hypertension: Yes Immune Disorder: No Kidney Stones: No Medical other: Yes (DJD) Musculoskeletal: Yes Neurologic: No Psychiatric: No Reproductive: No Respiratory: Yes (LUNG CANCER) Immunizations Current: Yes Migraines: No Myocardial Infarction: Yes Pancreatitis: Yes Radiation Therapy: No Renal Failure: No Seizures: No Sickle Cell Disease: No Sleep Apnea: No Thyroid Disease: No Ulcer: Yes Tetanus Vaccination: Never Vaccinated PNEUMOCCOCAL Vaccine (Year): 2 Past Surgical History Abdominal Surgery: Yes (appendectomy, G TUBE INSERTED) AICD: No Appendectomy: Yes Arteriovenous Shunt: No Cardiac Surgery: Yes (TRIPLE BYPASS 2006) Cholecystectomy: No Coronary Artery Bypass Graft: Yes (TRIPLE BYPASS) Ear Surgery: No Endocrine Surgery: No Eye Surgery: No Genitourinary Surgery: No Gynecologic Surgery: No Insulin Pump: No Joint Replacement: No Neurologic Surgery: No Oral Surgery: No Pacemaker: No Thoracic Surgery: No Other Surgery: Yes (CABG, APPENDECTOMY) Social History Alcohol Use: No Tobacco Use: Yes (1 PPD) Substance Use: No Allergies-Medications Allergies-Medications (Allergen,Severity, Reaction): Coded Allergies: levofloxacin (Unverified Adverse Reaction, Mild, Itching, 04/11/17) Reported Meds & Prescriptions Reported Meds & Active Scripts Active Tylenol-Codeine #3 (Acetaminophen-Codeine) 300-30 mg Tab 1 Tab PO Q12HR PRN ROS Review of Systems Except as stated in HPI: all other systems reviewed are Neg Physical Exam Vital Signs Vital Signs Date Time Temp Pulse Resp B/P (MAP) Pulse Ox O2 Delivery O2 Flow Rate FiO2 04/11/17 17:14 98.0 70 16 163/70 (101) 99 Nasal Cannula 3.00 04/11/17 17:00 98.0 70 16 163/70 95 04/11/17 16:37 100 Nasal Cannula 3.00 04/11/17 16:37 97.9 80 16 162/70 97 04/11/17 16:34 98.2 78 16 165/73 100 04/11/17 16:31 98.0 75 16 148/86 100 04/11/17 16:31 98.0 78 16 150/90 100 04/11/17 16:26 97.8 80 18 150/90 97 04/11/17 15:50 70 18 140/63 (88) 96 Nasal Cannula 2.00 04/11/17 13:11 98.4 65 16 140/65 (90) 100 Room Air 04/11/17 13:07 98.4 68 16 140/65 (90) 100 Room Air 04/11/17 13:07 68 04/11/17 13:02 98.5 70 16 140/65 (90) 96 Laboratory Laboratory Tests Test 04/11/17 13:16 04/11/17 14:15 White Blood Count 13.2 Red Blood Count 1.27 Hemoglobin 4.5 Hematocrit 14.1 Mean Corpuscular Volume 111.4 Mean Corpuscular Hemoglobin 35.4 Mean Corpuscular Hemoglobin Concent 31.8 Red Cell Distribution Width 18.7 Platelet Count 122 Mean Platelet Volume 11.1 Neutrophils (%) (Auto) 91.0 Lymphocytes (%) (Auto) 3.4 Monocytes (%) (Auto) 5.4 Eosinophils (%) (Auto) 0.1 Basophils (%) (Auto) 0.1 Neutrophils # (Auto) 12.1 Lymphocytes # (Auto) 0.5 Monocytes # (Auto) 0.7 Eosinophils # (Auto) 0.0 Basophils # (Auto) 0.0 CBC Comment AUTO DIFF Differential Total Cells Counted 100 Neutrophils % (Manual) 86 Band Neutrophils % 6 Lymphocytes % 6 Monocytes % 2 Neutrophils # (Manual) 12.1 Differential Comment FINAL DIFF MANUAL Platelet Estimate LOW Platelet Morphology Comment NORMAL Polychromasia 3.0 Prothrombin Time 11.2 Prothromb Time International Ratio 1.0 Activated Partial Thromboplast Time 25.0 Blood Urea Nitrogen 79 Creatinine 1.52 Random Glucose 111 Total Protein 5.9 Albumin 2.4 Calcium Level 7.7 Alkaline Phosphatase 150 Aspartate Amino Transf (AST/SGOT) 44 Alanine Aminotransferase (ALT/SGPT) 57 Total Bilirubin 0.3 Sodium Level 140 Potassium Level 5.5 Chloride Level 111 Carbon Dioxide Level 22.8 Anion Gap 6 Estimat Glomerular Filtration Rate 44 Total Creatine Kinase 92 Troponin I 0.63 Lipase 252 Urine Color YELLOW Urine Turbidity CLEAR Urine pH 5.0 Urine Specific [place] 1.017 Urine Protein 30 Urine Glucose (UA) NEG Urine Ketones NEG Urine Occult Blood NEG Urine Nitrite NEG Urine Bilirubin NEG Urine Urobilinogen LESS THAN 2.0 Urine Leukocyte Esterase NEG Urine RBC LESS THAN 1 Urine WBC 1 Urine Squamous Epithelial Cells <1 Urine Hyaline Casts 10 Urine Mucus FEW Microscopic Urinalysis Comment CULT NOT INDICATED Result Diagram: 04/11/17 1316 04/11/17 1316 Imaging Last Impressions Chest X-Ray 04/11/17 0000 Signed Impressions: Service Date/Time: Tuesday, April 11, 2017 13:27 - CONCLUSION: 1. No acute abnormality or significant interval change. Mitch Nugent MD Abdomen/Pelvis CT 04/11/17 0000 Signed Impressions: Service Date/Time: Tuesday, April 11, 2017 14:36 - CONCLUSION: Patient' s had a cholecystectomy and likely ERCP with some air in the biliary tree. No free fluid or or free air is identified. The mesenteric vein is quite tortuous new since December 2014 of uncertain significance. G-tube in good position. Air space disease right lower lobe atelectasis versus pneumonia Harry Dacosta MD Septic Shock Reassessment Heart: Regular rate and rhythm Lungs: Clear Skin: Cold Peripheral Pulses: Weak Right Radial Weak Left Radial Weak Right Dorsalis Pedis Weak Left Dorsalis Pedis Caprini VTE Risk Assessment Caprini VTE Risk Assessment: No/Low Risk (score <= 1) VTE Pharm Contraindication: Hemorrhage Caprini Risk Assessment Model Point Value = 1 Point Value = 2 Point Value = 3 Point Value = 5 Age 41-60 Minor surgery BMI > 25 kg/m2 Swollen legs Varicose veins or History of unexplained or recurrent spontaneous Oral contraceptives or hormone replacement Sepsis (< 1 month) Serious lung disease, including pneumonia (< 1 month) Abnormal pulmonary function Acute myocardial infarction Congestive heart failure (< 1 month) History of inflammatory bowel disease Medical patient at bed rest Age 61-74 Arthroscopic surgery Major open surgery (> 45 min) Laparoscopic surgery (> 45 min) Malignancy Confined to bed (> 72 hours) Immobilizing plaster cast Central venous access Age >= 75 History of VTE Family history of VTE Factor V Leiden Prothrombin [id number] Lupus anticoagulant Anticardiolipin antibodies Elevated serum homocysteine Heparin-induced thrombocytopenia Other congenital or acquired thrombophilia Stroke (< 1 month) Elective arthroplasty Hip, pelvis, or leg fracture Acute spinal cord injury (< 1 month) Prophylaxis Regimen Total Risk Factor Score Risk Level Prophylaxis Regimen 0-1 Low Early ambulation 2 Moderate Order ONE of the following: *Sequential Compression Device (SCD) *Heparin 5000 units SQ BID 3-4 Higher Order ONE of the following medications: *Heparin 5000 units SQ TID *Enoxaparin/Lovenox 40 mg SQ daily (WT < 150 kg, CrCl > 30 mL/min) *Enoxaparin/Lovenox 30 mg SQ daily (WT < 150 kg, CrCl > 10-29 mL/min) *Enoxaparin/Lovenox 30 mg SQ BID (WT < 150 kg, CrCl > 30 mL/min) AND/OR *Sequential Compression Device (SCD) 5 or more Highest Order ONE of the following medications: *Heparin 5000 units SQ TID (Preferred with Epidurals) *Enoxaparin/Lovenox 40 mg SQ daily (WT < 150 kg, CrCl > 30 mL/min) *Enoxaparin/Lovenox 30 mg SQ daily (WT < 150 kg, CrCl > 10-29 mL/min) *Enoxaparin/Lovenox 30 mg SQ BID (WT < 150 kg, CrCl > 30 mL/min) AND *Sequential Compression Device (SCD) Assessment and Plan Assessment and Plan Assessment This is a chronically/critically ill-appearing malnourished male with a acute blood loss anemia secondary to GI bleed. The patient is a poor historian but patient does have a history of previous episodes of GI bleed, and history is also significant for head and neck cancer. The patient complains of chest pain and notably a history of lung cancer, records not at [facility] as patient reports, possibly at [facility] where the patient gets his regular care. CT chest pending. The patient is noted to have life-threatening hyperkalemia which needs to be followed and addressed. The patient is critically ill admit to ICU. Assessment GI bleed Acute blood loss anemia History of gastric ulcer 04/05 Hyperkalemia Dehydration Nausea and vomiting History of head and neck cancer S/P chemotherapy and XRT Tobacco abuse O2 dependency Coronary artery disease Plan Neurologic: Neurochecks per ICU protocol Tylenol 650 mg every 6 hours when necessary for pain scale 3-6 Morphine 2 mg every 6 hours when necessary pain scale 6-10 Respiratory: Obtain O2 sat greater than 92% Continue oxygen nasal cannula 1-4 liters, patient's home O2 dependency he reports is 2 L/m Bronchodilators every 4 hours when necessary for wheezing Smoking cessation discussed Cardiovascular: Obtain EKG Maintain MAP > 65 Telemetry-sinus rhythm Attempt to obtain records from [facility] regarding patient's cardiopulmonary history Renal: Condom catheter -- Strict I/Os FEN/GI: Bolused with normal saline 500 cc Repeat bolused 500 cc 1 Normal saline at 100 cc/hour NPO status Protonix drip GI consult PEG tube to gravity Follow-up potassium level @ 2300 Obtain LFTs, lipase level, lipid panel Heme/ID: Transfuse 2 units packed red blood cells, keep 4 units packed red blood cells on hold Monitor H&H every 6 hours Monitor CBC-obtain cultures if clinically indicated Endocrine: Glucose monitoring per ICU protocol, low dose regimen -- SSI Prophylaxis: GI Prophylaxis Protonix infusion DVT Prophylaxis -- SCDs Pharmacological prophylaxis contraindicated in the setting of GI bleeding Lines: Peripheral IVs providing adequate access. Central line if indicated. Dispo: This patient remains critically ill with one or more organ systems which are or may become a threat to life. I have spent in excess of 60 minutes discontinuously in the care and management of this patient. This time is exclusive of procedures, and includes, but is not limited to, evaluation of the patient, review of the medical record, discussions with family, consultants, nursing staff, or respiratory therapy, and documentation in the medical record. Consult palliative care to define goals of care. Code Status Full Discussed Condition With Dr. Monsivais, patient and [employer] at bedside Problem Qualifiers (1) Chest pain: Qualified Codes: R07.9 - Chest pain, unspecified Fariha Hawley MD Apr 11, 2017 17:58
[2017-04-11] MEDS ORDERED: MORPHINE SULFATE 2 MG/ML INJ IV PUSH PRN (18:00)
[2017-04-11] MEDS ORDERED: ACETAMINOPHEN 650 MG/20.3 ML UDC PO PRN (18:15)
[2017-04-11] MEDS: INSULIN ASPART SUPPLEMENTAL SCALE SQ SCH (21:00)
[2017-04-11] MEDS: FAMOTIDINE 20 MG/2 ML VIAL IV PUSH SCH (21:18)
[2017-04-11] MEDS: DOCUSATE SODIUM 50 MG/SENNA 8.6 MG TAB PO SCH (21:18)
[2017-04-11] MEDS: SODIUM CHLORIDE 0.9% FLUSH 10 ML FLUSH IV FLUSH SCH (21:19)
[2017-04-11] MEDS: PANTOPRAZOLE INJ 80 MG in SODIUM CHLORIDE 0.9% INJ 100 ML IV SCH (21:19)
[2017-04-12] VITALS (27 sets, daily range): BP systolic 140–201; BP diastolic 62–88; PULSE 61–93; RESP 13–48; TEMP 97.6–98.6; O2SAT 74–100
[2017-04-12 00:48] LABS: REVIEW FLAG FINAL
[2017-04-12 00:49] LABS: HEMATOCRIT 20.7 % (39.0-51.0)
[2017-04-12] MEDS: CHLORHEXIDINE GLUCONATE 2 % 1 PACK (2 CLOTHS) TOP SCH (00:55)
[2017-04-12 01:00] LABS: POTASSIUM 5.3 MEQ/L (3.5-5.1)
[2017-04-12 01:04] LABS: HDL CHOLESTEROL 33.9 MG/DL (40.0-60.0); INDIRECT BILIRUBIN 0.5 MG/DL (0.0-0.8); TOTAL BILIRUBIN ADULT 0.8 MG/DL (0.2-1.0)
[2017-04-12] MEDS: MORPHINE SULFATE 4 MG/ML INJ IV PUSH PRN ×2 (04:48→09:22)
[2017-04-12 05:23] LABS: MEAN CELL VOLUME 96.1 FL (80.0-100.0); MEAN CORPUSCULAR HEMOGLOBIN 32.3 PG (27.0-34.0); MEAN CORPUSCULAR HGB CONC 33.7 % (32.0-36.0); PLATELET COUNT 112 TH/MM3 (150-450); RED BLOOD COUNT 2.92 MIL/MM3 (4.50-5.90); RED CELL DISTRIBUTION WIDTH 18.6 % (11.6-17.2); REVIEW FLAG FINAL; WHITE BLOOD COUNT 13.4 TH/MM3 (4.0-11.0)
[2017-04-12 06:01] LABS: ALKALINE PHOSPHATASE 154 U/L (45-117); ALT (GPT) 55 U/L (12-78); ANION GAP 10 MEQ/L (5-15); AST (GOT) 41 U/L (15-37); BICARBONATE 20.5 MEQ/L (21.0-32.0); BLOOD UREA NITROGEN 64 MG/DL (7-18); CHLORIDE 113 MEQ/L (98-107); CREATINE KINASE 124 U/L (39-308); GLOMERULAR FILTRATION RATE 49 ML/MIN (>89); MAGNESIUM 2.6 MG/DL (1.5-2.5); POTASSIUM 4.9 MEQ/L (3.5-5.1); SODIUM (NA) 143 MEQ/L (136-145); TOTAL BILIRUBIN ADULT 1.2 MG/DL (0.2-1.0)
[2017-04-12] MEDS: PANTOPRAZOLE INJ 80 MG in SODIUM CHLORIDE 0.9% INJ 100 ML IV SCH ×2 (06:13→19:30)
[2017-04-12] MEDS: INSULIN ASPART SUPPLEMENTAL SCALE SQ SCH ×4 (08:00→21:00)
--- NOTE | 2017-04-12 08:35 | PD.CONS ---
HPI History of Present Illness This is a 86 year old male who presented to the emergency room for evaluation of chest pain. He is a poor historian and it is difficult to obtain his history. He has a history of throat cancer, s/p chemotherapy and radiation about 3-4 years ago. As a result, he has dysphagia and underwent an EGD for dysphagia and upper GI Bleeding (04/15/16)----> Gastric ulcer, PEG placement. He also reports that he has a history of lung cancer. He states that he was diagnosed about 2 years ago and sees a doctor in [place] for this- but is not on any treatment because he is "too old." Of note, there is pathology from lung biopsy in the EMR dated 08/23/10, that was benign alveolar lung tissue with mild respiratory bronchiolitis. Malignancy is not identified. He complains of constant diffuse chest pain, but cannot provide any other details such as how long he has had it, what it feels like, or any aggravating or alleviating factors. He also mentions nausea and vomiting, but denies any hematemesis. He also endorses abdominal pain, but cannot further describe this. He believes he has had black stool, but states he really cannot comment on this. Of note, he did have a black tarry stool here at the hospital that was Hemoccult positive. He cannot recall when his last colonoscopy was. On admission, he was noted to have a H/H of 4.5/14.1. He was transfused 3 units of PRBC and this is currently 9.4/28.0. He denies any hx of NSAID use or ETOH use. (Salome Stuart) PFSH Past Medical History Arthritis CAD COPD Hyperlipidemia HTN Hx pancreatitis (unknown etiology Throat cancer 3-4 years ago, treated with radiation and chemo Dysphagia Hx biliary pancreatitis Gastric ulcer ? Lung cancer Past Surgical History Appendectomy Gastrostomy tube placement CABG Lung biopsy Throat biopsy Laparoscopic cholecystectomy (Salome Stuart) Coded Allergies: levofloxacin (Unverified Adverse Reaction, Mild, Itching, 04/11/17) Medications Allergies Coded Allergies Type Severity Reaction Last Updated Verified levofloxacin Adverse Reaction Mild Itching 04/11/17 No Active Scripts Medications Dose Route/Sig Max Daily Dose Days Date Category Tylenol-Codeine #3 (Acetaminophen-Codeine) 300-30 mg Tab 1 Tab PO Q12HR PRN 03/18/17 Rx Family History Does not know family hx Social History Smokes 1/2 PPD. No etoh use (Salome Stuart) Review of Systems Constitutional: COMPLAINS OF: Fatigue, DENIES: Fever, Chills Respiratory: COMPLAINS OF: Shortness of breath, DENIES: Cough Cardiovascular: COMPLAINS OF: Chest pain Gastrointestinal: COMPLAINS OF: Abdominal pain, Black stools, Nausea, Vomiting , DENIES: Heartburn, Hematemesis Hematologic/lymphatic: COMPLAINS OF: Bruising Neurologic: DENIES: Headache Psychiatric: DENIES: Confusion ROS poor historian (Salome Stuart) GI Exam Vitals I&O Vital Signs Date Time Temp Pulse Resp B/P (MAP) Pulse Ox O2 Delivery O2 Flow Rate FiO2 04/12/17 08:07 100 Nasal Cannula 3.00 04/12/17 06:00 61 04/12/17 04:00 77 04/12/17 04:00 98.3 77 48 169/81 (110) 97 04/12/17 03:43 98.3 68 24 163/62 99 04/12/17 02:00 66 04/12/17 01:53 98.5 66 25 157/66 100 04/12/17 01:37 98.6 71 24 161/70 100 04/12/17 00:00 63 04/12/17 00:00 98.5 63 13 149/68 (95) 100 04/11/17 23:18 98.5 67 15 151/72 100 04/11/17 22:00 71 04/11/17 20:48 98.2 72 20 159/68 100 04/11/17 20:30 98.3 73 14 164/72 99 04/11/17 20:00 73 04/11/17 20:00 98.3 73 13 155/63 (93) 100 04/11/17 19:26 100 Nasal Cannula 3.00 04/11/17 17:14 98.0 70 16 163/70 (101) 99 Nasal Cannula 3.00 04/11/17 17:00 98.0 70 16 163/70 95 04/11/17 16:37 100 Nasal Cannula 3.00 04/11/17 16:37 97.9 80 16 162/70 97 04/11/17 16:34 98.2 78 16 165/73 100 04/11/17 16:31 98.0 75 16 148/86 100 04/11/17 16:31 98.0 78 16 150/90 100 04/11/17 16:26 97.8 80 18 150/90 97 04/11/17 15:50 70 18 140/63 (88) 96 Nasal Cannula 2.00 04/11/17 13:11 98.4 65 16 140/65 (90) 100 Room Air 04/11/17 13:07 98.4 68 16 140/65 (90) 100 Room Air 04/11/17 13:07 68 04/11/17 13:02 98.5 70 16 140/65 (90) 96 I/O 04/11/17 04/11/17 04/11/17 04/12/17 04/12/17 04/12/17 07:00 15:00 23:00 07:00 15:00 23:00 Intake Total 500 ml 935 ml 1370 ml Output Total 700 ml Balance 500 ml 935 ml 670 ml Intake Oral 75 ml IV Total 500 ml 500 ml 570 ml Packed Cells 400 ml 665 ml Blood Product IV Normal Saline Flush 35 ml 60 ml Output Urine Total 700 ml Imaging Last Impressions Chest X-Ray 04/11/17 0000 Signed Impressions: Service Date/Time: Tuesday, April 11, 2017 13:27 - CONCLUSION: 1. No acute abnormality or significant interval change. Mitch Nugent MD Chest CT 04/11/17 0000 Signed Impressions: Service Date/Time: Tuesday, April 11, 2017 17:14 - CONCLUSION: 2.7 x 1.5 cm partially cavitary mass in the left upper lobe. It has a spiculated margin and abuts the visceral pleura. Malignancy certainly within the differential. Small amount of airspace disease in the posterior aspect of the right lower lobe could be area of pneumonia. Status post CABG. Harry Dacosta MD Abdomen/Pelvis CT 04/11/17 0000 Signed Impressions: Service Date/Time: Tuesday, April 11, 2017 14:36 - CONCLUSION: Patient' s had a cholecystectomy and likely ERCP with some air in the biliary tree. No free fluid or or free air is identified. The mesenteric vein is quite tortuous new since December 2014 of uncertain significance. G-tube in good position. Air space disease right lower lobe atelectasis versus pneumonia Harry Dacosta MD Laboratory Test 04/11/17 13:16 04/11/17 14:15 04/11/17 17:50 04/12/17 00:15 White Blood Count 13.2 TH/MM3 Red Blood Count 1.27 MIL/MM3 Hemoglobin 4.5 GM/DL 6.8 GM/DL Hematocrit 14.1 % 20.7 % Mean Corpuscular Volume 111.4 FL Mean Corpuscular Hemoglobin 35.4 PG Mean Corpuscular Hemoglobin Concent 31.8 % Red Cell Distribution Width 18.7 % Platelet Count 122 TH/MM3 Mean Platelet Volume 11.1 FL Neutrophils (%) (Auto) 91.0 % Lymphocytes (%) (Auto) 3.4 % Monocytes (%) (Auto) 5.4 % Eosinophils (%) (Auto) 0.1 % Basophils (%) (Auto) 0.1 % Neutrophils # (Auto) 12.1 TH/MM3 Lymphocytes # (Auto) 0.5 TH/MM3 Monocytes # (Auto) 0.7 TH/MM3 Eosinophils # (Auto) 0.0 TH/MM3 Basophils # (Auto) 0.0 TH/MM3 CBC Comment AUTO DIFF Differential Total Cells Counted 100 Neutrophils % (Manual) 86 % Band Neutrophils % 6 % Lymphocytes % 6 % Monocytes % 2 % Neutrophils # (Manual) 12.1 TH/MM3 Differential Comment FINAL DIFF MANUAL Platelet Estimate LOW Platelet Morphology Comment NORMAL Polychromasia 3.0 % Prothrombin Time 11.2 SEC Prothromb Time International Ratio 1.0 RATIO Activated Partial Thromboplast Time 25.0 SEC Blood Urea Nitrogen 79 MG/DL Creatinine 1.52 MG/DL Random Glucose 111 MG/DL Total Protein 5.9 GM/DL 5.2 GM/DL Albumin 2.4 GM/DL 2.2 GM/DL Calcium Level 7.7 MG/DL Alkaline Phosphatase 150 U/L 121 U/L Aspartate Amino Transf (AST/SGOT) 44 U/L 36 U/L Alanine Aminotransferase (ALT/SGPT) 57 U/L 47 U/L Total Bilirubin 0.3 MG/DL 0.8 MG/DL Sodium Level 140 MEQ/L Potassium Level 5.5 MEQ/L 5.3 MEQ/L Chloride Level 111 MEQ/L Carbon Dioxide Level 22.8 MEQ/L Anion Gap 6 MEQ/L Estimat Glomerular Filtration Rate 44 ML/MIN Total Creatine Kinase 92 U/L 90 U/L Troponin I 0.63 NG/ML 0.88 NG/ML Lipase 252 U/L 169 U/L Urine Color YELLOW Urine Turbidity CLEAR Urine pH 5.0 Urine Specific Browning 1.017 Urine Protein 30 mg/dL Urine Glucose (UA) NEG mg/dL Urine Ketones NEG mg/dL Urine Occult Blood NEG Urine Nitrite NEG Urine Bilirubin NEG Urine Urobilinogen LESS THAN 2.0 MG/DL Urine Leukocyte Esterase NEG Urine RBC LESS THAN 1 /hpf Urine WBC 1 /hpf Urine Squamous Epithelial Cells <1 /hpf Urine Hyaline Casts 10 /lpf Urine Mucus FEW /lpf Microscopic Urinalysis Comment CULT NOT INDICATED Nasal Screen MRSA (PCR) MRSA NOT DETECTED Direct Bilirubin 0.3 MG/DL Indirect Bilirubin 0.5 MG/DL Triglycerides Level 31 MG/DL Cholesterol Level 72 MG/DL LDL Cholesterol 32 MG/DL HDL Cholesterol 33.9 MG/DL Cholesterol/HDL Ratio 2.12 RATIO Test 04/12/17 04:57 White Blood Count 13.4 TH/MM3 Red Blood Count 2.92 MIL/MM3 Hemoglobin 9.4 GM/DL Hematocrit 28.0 % Mean Corpuscular Volume 96.1 FL Mean Corpuscular Hemoglobin 32.3 PG Mean Corpuscular Hemoglobin Concent 33.7 % Red Cell Distribution Width 18.6 % Platelet Count 112 TH/MM3 Mean Platelet Volume 11.1 FL Blood Urea Nitrogen 64 MG/DL Creatinine 1.37 MG/DL Random Glucose 104 MG/DL Total Protein 6.2 GM/DL Albumin 2.4 GM/DL Calcium Level 8.2 MG/DL Phosphorus Level 4.4 MG/DL Magnesium Level 2.6 MG/DL Alkaline Phosphatase 154 U/L Aspartate Amino Transf (AST/SGOT) 41 U/L Alanine Aminotransferase (ALT/SGPT) 55 U/L Total Bilirubin 1.2 MG/DL Sodium Level 143 MEQ/L Potassium Level 4.9 MEQ/L Chloride Level 113 MEQ/L Carbon Dioxide Level 20.5 MEQ/L Anion Gap 10 MEQ/L Estimat Glomerular Filtration Rate 49 ML/MIN Total Creatine Kinase 124 U/L Physical Examination HEENT: Normocephalic; atraumatic; no jaundice. CHEST: Resp. even/shallow, even. Diminished throughout. CARDIAC: RRR ABDOMEN: Soft, nondistended, nontender; no hepatosplenomegaly; bowel sounds are present in all four quadrants. PEG tube, aspirated clear gastric secretions EXTREMITIES: No clubbing, cyanosis, or edema. SKIN: Normal; no rash; no jaundice. DISTRIBUTION ESTIMATOR: No focal deficits; lethargic. Poor historian (Salome Stuart) Assessment and Plan Plan ASSESSMENT: - Upper GIB, Melena. Hx gastric ulcer. Pt poor historian but does endorse n/v/ pain, black stools. He was noted to have a melanotic stool here at hospital. Flushed and aspirated clear secretions from PEG tube. Pt had severe anemia on admission, but responded appropriately to transfusion. Protonix Gtt. - N/V, Abdominal pain. CT Scan abdomen and pelvis with IV contrast (04/11/17)-- -> S/P Cholecystectomy and likely ERCP with some air in biliary tree. No free fluid or free air identified. The mesenteric vein is quite tortuous new since December 2014 of uncertain significance. G tube good position. Air space right lower lobe atelectasis vs. pneumonia. ? Air in biliary tree r/t hx sphincterotomy. - Severe anemia, acute blood loss. HH 4.5/14.1 on admission. S/P 3 units PRBC and now 9.4/28.0. - Elevated LFTs. T. Bili 1.2, AST 41, ALT 55, ALk Phosph 154. Will monitor. CT as above. - Dysphagia. 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 Has since had dysphagia and is unable to swallow solids, but able to take liquids. He has a PEG tube and gets Jevity 1.5 4 cans per day. - Atypical C.P, elevated troponin, CAD, Hyperlipidemia. Troponin I 0.03, 0.63, 0.88. Defer to attending/cardiology. - Leukocytosis. CT with RLL atelectasis vs. PNA. Per attending. - CINDY. Creat 1.37. - COPD, HTN, Arthritis per primary - Report hx of lung cancer- not on treatment. - Hx throat cancer, s/p chemo/radiation PLAN: - Plan for egd tomorrow if medical cleared - Obtain consents - ST for swallow evaluation, if passes okay for clear liquids - Protonix Gtt - Monitor HH - Transfuse as necessary - CBC, CMP in am - Notify GI of active bleeding - Supportive care - Further recommendations to follow based on results of above - Pt seen and examined by Dr. Alvarado and myself and this note is written on his behalf (Salome Stuart) Physician Comments Seen and examined with TONGUE PRESSER, Egd planned for tomorrow. Monitor for gi bleeding. Will follow. Thank you (Melissa Alvarado MD) Salome Stuart Apr 12, 2017 08:35 Melissa Alvarado MD Apr 12, 2017 11:07
[2017-04-12] MEDS: DOCUSATE SODIUM 50 MG/SENNA 8.6 MG TAB PO SCH ×2 (09:22→20:42)
[2017-04-12] MEDS: FAMOTIDINE 20 MG/2 ML VIAL IV PUSH SCH (09:23)
[2017-04-12] MEDS: SODIUM CHLORIDE 0.9% FLUSH 10 ML FLUSH IV FLUSH SCH ×2 (09:23→20:42)
--- NOTE | 2017-04-12 10:44 | EKG ---
Date Performed: 04/11/2017 Time Performed: 14:25:14 PTAGE: 86 years EKG: Sinus rhythm MARKED LEFT AXIS DEVIATION MODERATE INTRAVENTRICULAR CONDUCTION DELAY NONSPECIFIC ST & T-WAVE ABNORM ALITY ABNORMAL ECG PREVIOUS TRACING : 03/18/2017 11.22 DOCTOR: Carlos Albright Interpretating Date/Time 04/12/2017 10:43:12
[2017-04-12] MEDS: SODIUM CHLOR 0.9% 1000 ML INJ 1,000 ML IV SCH (12:38)
--- NOTE | 2017-04-12 13:58 | MB ---
cc: NAYELI PETERSON DATE OF CONSULTATION: 04/12/2017 REASON FOR CONSULTATION 1. Lung mass with a high likelihood of being malignant with significant comorbidities including gastrostomy tube, previous history of head and neck cancer and acute gastrointestinal hemorrhage. PATIENT PROFILE The patient is a 86-year-old white male who has been twice. He has seven children. His current lives in [place]. He has a female bow machine operator who is present for the interview as well as his son who lives in [place]. The patient lives in [place]. He shares residence with a friend. He is retired. He had worked as a mechanic welder. He currently smokes half-pack of cigarettes per day and in the past had smoked more than this. 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 HISTORY OF PRESENT ILLNESS I am asked to see the patient because of a history of lung cancer. The patient's history goes back to at least August of 2010. He was found to have a small lesion in the left lung and underwent a CT-guided left lung biopsy on 08/23/2010. Pathology was benign. At some point subsequent to this he was seen in [place] and he tells me that physicians told him that he probably had lung cancer but due to significant medical problems, it should not be pursued. The patient is currently hospitalized because of an acute GI bleed. On 04/11/2017, he had a hemoglobin of 4.5, hematocrit of 14, white count 13,000 and platelet count of 122,000. He had a history of melena. Not surprisingly he had chest discomfort and shortness of breath. He has received packed cells and on 04/12 hemoglobin is 9.4, white count 13 and platelets 112,000. He has had imaging studies over the years. On 02/21/2013, he had a CT of the thorax showing a 1.2 cm spiculated nodule in the left upper lobe which had a high likelihood of being malignant. He had a current CT of the thorax on 04/11/2017, which I have reviewed and showed the images to the patient's son. He now has a 2.7 x 1.5 cm partially cavitary mass in the left upper lobe with a spiculated margin abutting the visceral pleura with malignancy being a high likelihood. I was not able to call up all of his previous images and spoke with Dr. Ramirez who is a radiologist and was kind enough to go back to previous aorta CTA on 01/16/2016, where he was able to compare the images. There has been growth in the nodule and Dr. Ramirez feels that this is a high likelihood of being malignant. The patient's history is complicated by the fact that approximately 3 or 4 years ago he had a head and neck cancer. He was treated with chemotherapy and radiation. He has difficulty swallowing and has a gastrostomy tube. He also has significant coronary artery disease and has undergone bypass surgery in the past. Over the past 6 months, according to his female bow machine operator, there has been a gradual deterioration in health. The patient does not recognize this but the patient's bow machine operator does. There has been unspecified weight loss. He has had a previous gastroesophageal bleed and had an upper endoscopy and PEG tube placement, on April 14, 2016, he was found to have a gastric ulcer at that time. PAST SURGICAL HISTORY 1. Gastrostomy tube placement. 2. 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 3. Appendectomy. 4. Coronary artery bypass surgery grafting. PAST MEDICAL HISTORY 1. Coronary artery disease with bypass. 2. COPD. 3. Difficulty swallowing following treatment for head and neck cancer requiring gastrostomy tube. 4. Coronary artery disease. MEDICATIONS Prior to admission: Tylenol with Codeine. ALLERGIES LEVAQUIN CAUSED A RASH. FAMILY HISTORY Noncontributory. REVIEW OF SYSTEMS Notable for increasing weakness, fatigue, melena, shortness of breath, difficulty swallowing lightheadedness, cough and muscle loss. LABORATORY DATA Current laboratory studies on 04/12 after transfusions: Hemoglobin 9.4, BUN 64, creatinine 1.37, bilirubin 0.8, B12 in January of 2015 was 910. Most recent iron studies January of 2015 reveal an iron of 26, TIBC of 291. IMAGING STUDIES Imaging studies on 04/11/2017, shows the 2.7 cm cavitary mass in left upper lobe. In the right lower lobe there are infiltrates suggestive of aspiration. CAT scan of the abdomen and pelvis 04/11/2017, shows evidence for previous cholecystectomy and a G-tube. PHYSICAL EXAMINATION GENERAL: Reveals a gaunt chronically and acutely ill-appearing male, he is weak. He has tremendous muscle loss. He needs help sitting up. VITAL SIGNS: Blood pressure is 160/80, respiratory rate 24, afebrile, pulse 80. HEENT: Head is normocephalic. Sclerae and conjunctivae are normal. Oropharynx no mucosal lesions. LYMPHATICS: There is no cervical, supraclavicular, axillary or inguinal adenopathy. HEART: Regular rhythm. LUNGS: Basilar rales bilaterally. ABDOMEN: Gaunt. No hepatosplenomegaly. No masses. EXTREMITIES: No edema. MUSCULOSKELETAL: Severe muscle wasting. NEUROLOGIC: Generalized weakness. ASSESSMENT The patient is a 86-year-old male. He has a longstanding history of tobacco and has a slowly enlarging mass in the left lung. On 08/23/2010, he had a needle biopsy which was benign. In looking at the progression over the past 5 or 6 years it is highly likely that this is malignant. I discussed the situation with Dr. Rmairez-radiologist, who was able to look at his current film and a previous film and feels that he probably has a malignancy If the patient did not have significant medical problems, I would recommend a needle biopsy and if positive for cancer, a PET scan and either surgery or radiation to the area if there is no metastatic disease. Unfortunately, this gentleman is severely ill. He has GI bleeding, probable pneumonia involving the right lung base, and extremely poor health with global weakness and muscle wasting. Under these circumstances I do not feel that the diagnosis of lung cancer should be presently pursued. He will need upper endoscopy and antibiotics for a probable aspiration pneumonia. RECOMMENDATIONS 1. I spoke to the patient and his son. I indicated that if he made a significant recovery and performance status markedly improved, then I would recommend a needle biopsy and PET scan if this is cancer. I think this is very unlikely to take place and if he remains weak and frail as he is presently, then I think the probable lung cancer should be left alone. Fortunately, if this is lung cancer, the growth has been very slow as it was identified going as far back as 2010. The situation was discussed in detail with the patient's son and female bow machine operator and everyone is in agreement. The patient does not want to further investigate the lung lesion. MD BLAS Thorpe/DAVID /12:38 PM /1:27 PM DAMIAN
[2017-04-12] MEDS ORDERED: SODIUM CHLORID 0.9% 500 ML INJ 500 ML IV ONE ×2 (14:00→14:15)
[2017-04-12 14:59] LABS: HEMATOCRIT 28.3 % (39.0-51.0); REVIEW FLAG FINAL
[2017-04-12] MEDS ORDERED: ONDANSETRON HCL 4 MG/2 ML VIAL IV PUSH PRN (15:15)
--- NOTE | 2017-04-12 15:34 | HHI.CCPN ---
Subjective Remarks/Hospital Course This is a 86-year-old malnourished chronically ill-appearing male that presented to the ED for evaluation of bilateral chest pain. Patient states he has been having this chest pain for over a year. He states reports that he has lung cancer and stated that his medical records were here at [facility] however no records are found. The patient says that the only medications that she normally is prescribed for pain medications for his lung cancer which he does not take. The patient states that he has had episodes of nausea and vomiting he normally takes 4 cans of Jevity 1.5 daily via PEG and upon consumption today, he became nauseated and vomited which he approximates the entire amount. He states it was normal in color, no coffee ground emesis was noted.He reports chronic vomiting and chronic abdominal pain as well. 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 Patient states he is not undergoing any chemotherapy or radiation therapy for lung cancer. The patient was noted to have black tarry stools, Hemoccult positive and laboratory and imaging studies revealed a hemoglobin of 4 upon arrival to the ED . The patient was ordered 2 units PRBCs to be transfused .patient was previously admitted with gastric ulcer GI bleeding and PEG was placed by Dr. Holden .The patient was also noted to be hyperkalemic and received insulin and D50, calcium chloride.He states that he is too elderly for any aggressive treatment. Critical care medicine was consulted. Subjective: 04/12: Afebrile. Patient continues to have bouts of nausea, no hematemesis, episodes of melena since admission. Patient has received a total of 3 units of packed cells since admission with hemoglobin stabilized at 9.6. Plan for EGD in a.m. per GI. Hematology/oncology was consulted, patient was seen by Dr. Menendez but declines any further workup of cavitary lung lesion highly suspicious for malignancy. Troponin noted to have slight elevation, but in the setting of CINDY and sepsis. Patient had an episode atypical chest pain last evening , Cardiology has been consulted, an echo has been ordered, continue to trend troponin levels, and patient has been placed on beta lavon. Objective Vital Signs Date Time Temp Pulse Resp B/P (MAP) Pulse Ox O2 Delivery O2 Flow Rate FiO2 04/12/17 08:07 100 Nasal Cannula 3.00 04/12/17 06:00 61 04/12/17 04:00 98.3 48 169/81 (110) Intake and Output 04/12/17 04/12/17 04/13/17 08:00 16:00 00:00 Intake Total 986 ml Output Total 700 ml Balance 286 ml Result Diagram: 04/12/17 1405 04/12/17 0457 Imaging Last Impressions Chest X-Ray 04/11/17 0000 Signed Impressions: Service Date/Time: Tuesday, April 11, 2017 13:27 - CONCLUSION: 1. No acute abnormality or significant interval change. Mitch Nugent MD Chest CT 04/11/17 0000 Signed Impressions: Service Date/Time: Tuesday, April 11, 2017 17:14 - CONCLUSION: 2.7 x 1.5 cm partially cavitary mass in the left upper lobe. It has a spiculated margin and abuts the visceral pleura. Malignancy certainly within the differential. Small amount of airspace disease in the posterior aspect of the right lower lobe could be area of pneumonia. Status post CABG. Harry Dacosta MD Abdomen/Pelvis CT 04/11/17 0000 Signed Impressions: Service Date/Time: Tuesday, April 11, 2017 14:36 - CONCLUSION: Patient' s had a cholecystectomy and likely ERCP with some air in the biliary tree. No free fluid or or free air is identified. The mesenteric vein is quite tortuous new since December 2014 of uncertain significance. G-tube in good position. Air space disease right lower lobe atelectasis versus pneumonia Harry Dacosta MD Last Impressions Chest X-Ray 04/11/17 0000 Signed Impressions: Service Date/Time: Tuesday, April 11, 2017 13:27 - CONCLUSION: 1. No acute abnormality or significant interval change. Mitch Nugent MD Abdomen/Pelvis CT 04/11/17 0000 Signed Impressions: Service Date/Time: Tuesday, April 11, 2017 14:36 - CONCLUSION: Patient' s had a cholecystectomy and likely ERCP with some air in the biliary tree. No free fluid or or free air is identified. The mesenteric vein is quite tortuous new since December 2014 of uncertain significance. G-tube in good position. Air space disease right lower lobe atelectasis versus pneumonia Harry Dacosta MD Objective Remarks GENERAL: This is a cachectic, chronically ill-appearing male patient in moderate distress with complaints of nausea SKIN: Warm and dry HEAD: Atraumatic. Normocephalic. EYES: Pupils equal and round. No scleral icterus. No injection or drainage. ENT: No nasal bleeding or discharge. Mucous membranes pink and moist. NECK: Trachea midline. No JVD. CARDIOVASCULAR: Normal rate, regular rhythm. RESPIRATORY: No accessory muscle use. Scattered rhonchi throughout lung gruber. Breath sounds equal bilaterally. GASTROINTESTINAL: Abdomen soft, non-tender, nondistended. No guarding. PEG tube in situ, clamped. MUSCULOSKELETAL: Extremities without clubbing, cyanosis, or edema. No obvious deformities. NEUROLOGICAL: Awake and alert. RASS 0. No gross focal/sensory deficits. Follows commands in all 4 extremities. 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 Tobacco abuse O2 dependency Coronary artery disease Atypical chest pain Plan Neurologic: Neurochecks per ICU protocol Tylenol 650 mg every 6 hours when necessary for pain scale 3-6 Morphine 2 mg every 6 hours when necessary pain scale 6-10 Respiratory: Obtain O2 sat greater than 92% Continue oxygen nasal cannula 1-4 liters, patient's home O2 dependency he reports is 2 L/m Bronchodilators every 4 hours when necessary for wheezing Smoking cessation discussed Incentive spirometry 04/11-CT chest cavitary lesion left upper lobe highly suspicious of malignancy Cardiovascular: Obtain EKG Maintain MAP > 65 Telemetry-sinus rhythm Attempt to obtain records from [facility] regarding patient's cardiopulmonary history, Medical release obtained Begin metoprolol 5mg IV q 8hr, holding parameters Patient is not a candidate for any type of anticoagulation or ASA secondary to GI bleed, will not begin statin with notable elevated LFTs Obtain echo ( echo recorded 07/2012 @ [place] EF 65-70% with no RWMA) Cardiology consulted Renal: Apply Condom catheter -- Strict I/Os FEN/GI: Bolused with normal saline 500 cc x 2 Repeat bolused 500 cc 1 Normal saline at 100 cc/hour NPO status Protonix drip GI consult PEG tube to gravity LFTs- AST and alkaline phosphatase elevated, lipase level- normal, cholesterol/ HDL ratio WNL 2.12 Heme/ID: 04/11 Transfused 3 units packed red blood cells keep 4 units packed red blood cells on hold Monitor H&H every 6 hours Monitor CBC Obtain blood, sputum, influenza, Legionella, pneumococcal urine antigen follow- up results Begin prophylactic antibiotics de-escalation upon culture results Endocrine: Glucose monitoring per ICU protocol, low dose regimen -- SSI Prophylaxis: GI Prophylaxis Protonix infusion DVT Prophylaxis -- SCDs Pharmacological prophylaxis contraindicated in the setting of GI bleeding Lines: Peripheral IVs providing adequate access. Central line if indicated. Dispo: This patient remains critically ill with one or more organ systems which are or may become a threat to life. I have spent in excess of 35 minutes discontinuously in the care and management of this patient. This time is exclusive of procedures, and includes, but is not limited to, evaluation of the patient, review of the medical record, discussions with family, consultants, nursing staff, or respiratory therapy, and documentation in the medical record. Consult palliative care to define goals of care. Physician Fariha Chowdhury MD Apr 12, 2017 15:34
[2017-04-12] MEDS ORDERED: METOPROLOL TARTRATE 5 MG/5 ML VIAL IV PUSH PRN (15:45)
--- NOTE | 2017-04-12 17:34 | PD.CONS ---
HPI Consult Requested By Primary Care Physician Zhou [facility] History of Present Illness 86 year old male who presented to the emergency room for evaluation of chest pain. He is a poor historian and it is difficult to obtain his history. He has a history of throat cancer, s/p chemotherapy and radiation about 3-4 years ago. As a result, he has dysphagia and underwent an EGD for dysphagia and upper GI Bleeding (04/15/16)----> Gastric ulcer, PEG placement. He also reports that he has a history of lung cancer. He states that he was diagnosed about 2 years ago and sees a doctor in [place] for this- but is not on any treatment because he is "too old." Of note, there is pathology from lung biopsy in the EMR dated 08/23/10, that was benign alveolar lung tissue with mild respiratory bronchiolitis. Malignancy is not identified. He complains of constant diffuse chest pain, but cannot provide any other details such as how long he has had it, what it feels like, or any aggravating or alleviating factors. He also mentions nausea and vomiting, but denies any hematemesis. He also endorses abdominal pain, but cannot further describe this. He believes he has had black stool, but states he really cannot comment on this. Of note, he did have a black tarry stool here at the hospital that was Hemoccult positive. He cannot recall when his last colonoscopy was. On admission, he was noted to have a H/H of 4.5/14.1. He was transfused 3 units of PRBC and this is currently 9.4/28.0. He denies any hx of NSAID use or ETOH use. Cardiology consulted fo chest pain. Review of Systems Consitutional: DENIES: Fatigue, Fever, Chills, Weight gain, Weight loss Eyes: DENIES: Amaurosis Fugax, Change in vision HEENT: DENIES: Lightheadedness, Change in hearing Respiratory: COMPLAINS OF: See HPI Cardiovascular: COMPLAINS OF: See HPI Gastrointestinal: DENIES: Nausea, Vomiting, Change in bowel habits, Reflux, Bloody stools, Melena Genitourinary: DENIES: Urinary incontinence, Difficulty voiding Integumentary: DENIES: Rash Neurologic: DENIES: Tingling or numbness, Memory problems, Poor Balance, Stroke symptoms Musculoskeletal: DENIES: Joint pain, Muscle pain, Limited range of motion, Back pain Psychiatric: DENIES: Anxiety, Depression, Sleep disturbances Hematologic: DENIES: Bruising tendencies, Bleeding tendencies Endocrine: DENIES: Weight gain, Weight loss, Thyroid disease Past Family Social History Allergies: Coded Allergies: levofloxacin (Unverified Adverse Reaction, Mild, Itching, 04/11/17) Past Medical History Arthritis CAD COPD Hyperlipidemia HTN Hx pancreatitis (unknown etiology Throat cancer 3-4 years ago, treated with radiation and chemo Dysphagia Hx biliary pancreatitis Gastric ulcer ? Lung cancer Past Surgical History Appendectomy Gastrostomy tube placement CABG Lung biopsy Throat biopsy Laparoscopic cholecystectomy Reported Medications Reported Meds & Active Scripts Active Tylenol-Codeine #3 (Acetaminophen-Codeine) 300-30 mg Tab 1 Tab PO Q12HR PRN Active Ordered Medications Current Medications Medications (Trade) Dose Ordered Sig/Valentine Route Start Time Stop Time Status Last Admin Sodium Chloride 1,000 ml @ 100 mls/hr Q10H IV 04/11/17 16:22 04/11/17 23:20 (NS Flush) 2 ml UNSCH PRN IV FLUSH 04/11/17 16:30 (NS Flush) 2 ml BID IV FLUSH 04/11/17 21:00 04/12/17 09:23 (Morphine Inj) 2 mg Q4HR PRN IV PUSH 04/11/17 16:30 04/12/17 09:22 (Duoneb Neb) 1 ampule Q4HR NEB PRN INH 04/11/17 16:30 Miscellaneous Information 1 Q361D XX 04/11/17 16:30 04/11/17 16:30 (Chlorhexidine 2% Cloth) 3 pack Taper DAILY@04 TOP 04/12/17 04:00 04/08/18 03:59 04/12/17 00:55 (Chlorhexidine 2% Cloth) 3 pack UNSCH PRN TOP 04/11/17 16:30 (Marisol-Colace) 1 tab BID PO 04/11/17 21:00 04/12/17 09:22 (Milk Of Magnesia Liq) 30 ml Q12H PRN PO 04/11/17 16:30 (Senokot) 17.2 mg Q12H PRN PO 04/11/17 16:30 (Dulcolax Supp) 10 mg DAILY PRN RECTAL 04/11/17 16:30 (Lactulose Liq) 30 ml DAILY PRN PO 04/11/17 16:30 (D50w (Vial) Inj) 50 ml UNSCH PRN IV PUSH 04/11/17 17:15 (Glucagon Inj) 1 mg UNSCH PRN OTHER 04/11/17 17:15 (NovoLOG SUPPLEMENTAL SCALE) 1 ACHS SLIDING SCALE SQ 04/11/17 21:00 Pantoprazole Sodium 80 mg/ Sodium Chloride 100 ml @ 10 mls/hr Q10H IV 04/11/17 20:00 04/12/17 06:13 (Morphine Inj) 2 mg Q6H PRN IV PUSH 04/11/17 18:00 (Tylenol 650 Mg/ 20 ml Liq) 650 mg Q6H PRN PO 04/11/17 18:15 (Zofran Inj) 4 mg Q4H PRN IV PUSH 04/12/17 15:15 (Lopressor Inj) 5 mg Q6H PRN IV PUSH 04/12/17 15:45 Family History Does not know family hx Social History Smokes 1/2 PPD. No etoh use Physical Exam Vital Signs Vital Signs Date Time Temp Pulse Resp B/P (MAP) Pulse Ox O2 Delivery O2 Flow Rate FiO2 04/12/17 08:07 100 Nasal Cannula 3.00 04/12/17 06:00 61 04/12/17 04:00 77 04/12/17 04:00 98.3 77 48 169/81 (110) 97 04/12/17 03:43 98.3 68 24 163/62 99 04/12/17 02:00 66 04/12/17 01:53 98.5 66 25 157/66 100 04/12/17 01:37 98.6 71 24 161/70 100 04/12/17 00:00 63 04/12/17 00:00 98.5 63 13 149/68 (95) 100 04/11/17 23:18 98.5 67 15 151/72 100 04/11/17 22:00 71 04/11/17 20:48 98.2 72 20 159/68 100 04/11/17 20:30 98.3 73 14 164/72 99 04/11/17 20:00 73 04/11/17 20:00 98.3 73 13 155/63 (93) 100 04/11/17 19:26 100 Nasal Cannula 3.00 Physical Exam GENERAL: Well-nourished, well-developed patient. SKIN: Warm and dry. HEAD: Normocephalic. EYES: No scleral icterus. No injection or drainage. NECK: Supple, trachea midline. No JVD or lymphadenopathy. CARDIOVASCULAR: Regular rate and rhythm without murmurs, gallops, or rubs. RESPIRATORY: Breath sounds equal bilaterally. No accessory muscle use. GASTROINTESTINAL: Abdomen soft, non-tender, nondistended. EXTREMITIES: No cyanosis, or edema. Laboratory Laboratory Tests Test 04/11/17 17:50 04/12/17 00:15 04/12/17 04:57 04/12/17 14:05 Nasal Screen MRSA (PCR) MRSA NOT DETECTED Hemoglobin 6.8 9.4 9.6 Hematocrit 20.7 28.0 28.3 Potassium Level 5.3 4.9 Total Bilirubin 0.8 1.2 Direct Bilirubin 0.3 Indirect Bilirubin 0.5 Aspartate Amino Transf (AST/SGOT) 36 41 Alanine Aminotransferase (ALT/SGPT) 47 55 Alkaline Phosphatase 121 154 Total Creatine Kinase 90 124 Troponin I 0.88 Total Protein 5.2 6.2 Albumin 2.2 2.4 Triglycerides Level 31 Cholesterol Level 72 LDL Cholesterol 32 HDL Cholesterol 33.9 Cholesterol/HDL Ratio 2.12 Lipase 169 White Blood Count 13.4 Red Blood Count 2.92 Mean Corpuscular Volume 96.1 Mean Corpuscular Hemoglobin 32.3 Mean Corpuscular Hemoglobin Concent 33.7 Red Cell Distribution Width 18.6 Platelet Count 112 Mean Platelet Volume 11.1 Blood Urea Nitrogen 64 Creatinine 1.37 Random Glucose 104 Calcium Level 8.2 Phosphorus Level 4.4 Magnesium Level 2.6 Sodium Level 143 Chloride Level 113 Carbon Dioxide Level 20.5 Anion Gap 10 Estimat Glomerular Filtration Rate 49 Date/Time Source Procedure Growth Status 04/12/17 16:30 Nasal Washing Influenza Types A,B Antigen (ROCIO) Pending Received Result Diagram: 04/12/17 1405 04/12/17 0457 Imaging Last Impressions Chest X-Ray 04/11/17 0000 Signed Impressions: Service Date/Time: Tuesday, April 11, 2017 13:27 - CONCLUSION: 1. No acute abnormality or significant interval change. Mitch Nugent MD Chest CT 04/11/17 0000 Signed Impressions: Service Date/Time: Tuesday, April 11, 2017 17:14 - CONCLUSION: 2.7 x 1.5 cm partially cavitary mass in the left upper lobe. It has a spiculated margin and abuts the visceral pleura. Malignancy certainly within the differential. Small amount of airspace disease in the posterior aspect of the right lower lobe could be area of pneumonia. Status post CABG. Harry Dacosta MD Abdomen/Pelvis CT 04/11/17 0000 Signed Impressions: Service Date/Time: Tuesday, April 11, 2017 14:36 - CONCLUSION: Patient' s had a cholecystectomy and likely ERCP with some air in the biliary tree. No free fluid or or free air is identified. The mesenteric vein is quite tortuous new since December 2014 of uncertain significance. G-tube in good position. Air space disease right lower lobe atelectasis versus pneumonia Harry Dacosta MD Assessment and Plan Problem List: (1) Chest pain ICD Codes: R07.9 - Chest pain, unspecified Status: Acute Plan: Atypical chest pain and troponin elevation in the setting of acute GI bleeding, symptomatic anemia and acute renal failure. Type II VT. Patient has know Hx of Cancer of ? prognosis. Given life threatening bleeding, requiring blood transfusion patient is NOT a candidate for invasive ischemic work up and/ or ASA/Plavix/Heparin. Currently he remains afebrile, hemodynamically stable with no CV complaints. Recommendations: 1. Tx bleeding per GI 2. Not candidate for LHC/PCI 3. Aggressive medical management for CAD as tolerated by BP and HR Cases discuss with Dr. Hawley Thank you for the opportunity to participate in the care of this patient Will be available on a PRN basis for any questions or concerns (2) GI bleed ICD Codes: K92.2 - Gastrointestinal hemorrhage, unspecified Status: Acute (3) Elevated troponin ICD Codes: R74.8 - Abnormal levels of other serum enzymes Status: Acute (4) Acute blood loss anemia ICD Codes: D62 - Acute posthemorrhagic anemia Status: Acute (5) Upper GI bleeding ICD Codes: K92.2 - Gastrointestinal hemorrhage, unspecified Status: Acute (6) Tobacco abuse ICD Codes: Z72.0 - Tobacco abuse Status: Chronic (7) CAD (coronary artery disease) ICD Codes: I25.9 - CAD (coronary artery disease) Status: Chronic (8) Severe malnutrition ICD Codes: E41 - Severe malnutrition Status: Chronic (9) High blood pressure ICD Codes: I10 - High blood pressure Status: Resolved Problem Qualifiers (1) Chest pain: Qualified Codes: R07.9 - Chest pain, unspecified (2) GI bleed: Qualified Codes: K92.2 - Gastrointestinal hemorrhage, unspecified Carlos Albright MD Apr 12, 2017 17:34
[2017-04-12 18:30] LABS: HEMATOCRIT 30.8 % (39.0-51.0); REVIEW FLAG FINAL
[2017-04-12] MEDS ORDERED: FUROSEMIDE 40 MG/4 ML VIAL IV PUSH ONE (20:30)
[2017-04-12] MEDS ORDERED: LABETALOL HCL 100 MG/20 ML VIAL IV PRN (20:45)
[2017-04-12 23:12] LABS: HEMATOCRIT 31.9 % (39.0-51.0); REVIEW FLAG FINAL
[2017-04-13] VITALS (13 sets, daily range): BP systolic 125–175; BP diastolic 59–80; PULSE 63–94; RESP 18–40; TEMP 97.8–99.1; O2SAT 82–100
[2017-04-13] MEDS: CHLORHEXIDINE GLUCONATE 2 % 1 PACK (2 CLOTHS) TOP SCH (04:00)
--- NOTE | 2017-04-13 07:08 | HHI.CCPN ---
Subjective Remarks/Hospital Course This is a 86-year-old malnourished chronically ill-appearing male that presented to the ED for evaluation of bilateral chest pain. Patient states he has been having this chest pain for over a year. He states reports that he has lung cancer and stated that his medical records were here at [facility] however no records are found. The patient says that the only medications that she normally is prescribed for pain medications for his lung cancer which he does not take. The patient states that he has had episodes of nausea and vomiting he normally takes 4 cans of Jevity 1.5 daily via PEG and upon consumption today, he became nauseated and vomited which he approximates the entire amount. He states it was normal in color, no coffee ground emesis was noted.He reports chronic vomiting and chronic abdominal pain as well. 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 Patient states he is not undergoing any chemotherapy or radiation therapy for lung cancer. The patient was noted to have black tarry stools, Hemoccult positive and laboratory and imaging studies revealed a hemoglobin of 4 upon arrival to the ED . The patient was ordered 2 units PRBCs to be transfused .patient was previously admitted 04/09/11/03 with gastric ulcer GI bleeding and PEG was placed by Dr. Holden .The patient was also noted to be hyperkalemic and received insulin and D50, calcium chloride.He states that he is too elderly for any aggressive treatment. Critical care medicine was consulted. Subjective: 04/12: Afebrile. Patient continues to have bouts of nausea, no hematemesis, episodes of melena since admission. Patient has received a total of 3 units of packed cells since admission with hemoglobin stabilized at 9.6. Plan for EGD in a.m. per GI. Hematology/oncology was consulted, patient was seen by Dr. Menendez but declines any further workup of cavitary lung lesion highly suspicious for malignancy. Troponin noted to have slight elevation, but in the setting of CINDY and sepsis. Patient had an episode atypical chest pain last evening , Cardiology has been consulted, an echo has been ordered, continue to trend troponin levels, and patient has been placed on beta lavon. 04/13: Hgb stable this a.m.. Overnight the patient has refused all forms of medical care. Patient refuses to wear oxygen current O2 saturation is in the high 89%, patient refusing medication, noted elevation in blood pressure.The patient's IVF was placed hold, given 40 mg Lasix and diuresed 1500cc. Patient noted to have elevation in troponins does not want any aggressive forms of treatment requesting to leave the hospital AMA. Son was contacted Mr. Iglesia Ya last night, and stated he would come and pick him up this a.m.. Unable to monitor blood pressure, or HR at this point patient has removed all monitors. The patient is alert and oriented 3 and cognizant of the situation. Mr. Iglesia Ga telephone this a.m., enroute to pick him up. Objective Vital Signs Date Time Temp Pulse Resp B/P (MAP) Pulse Ox O2 Delivery O2 Flow Rate FiO2 04/13/17 02:00 81 04/13/17 00:40 84 21 04/12/17 20:00 97.6 23 162/75 (104) 04/12/17 19:15 Simple Mask 10.00 Result Diagram: 04/12/17 2306 04/12/17 0457 Other Results Microbiology Date/Time Source Procedure Growth Status 04/12/17 16:30 Nasal Washing Influenza Types A,B Antigen (ROCIO) - Final NEGATIVE FOR FLU A AND B ANTIGEN.... Complete Imaging Last Impressions Chest X-Ray 04/11/17 0000 Signed Impressions: Service Date/Time: Tuesday, April 11, 2017 13:27 - CONCLUSION: 1. No acute abnormality or significant interval change. Mitch Nugent MD Chest CT 04/11/17 0000 Signed Impressions: Service Date/Time: Tuesday, April 11, 2017 17:14 - CONCLUSION: 2.7 x 1.5 cm partially cavitary mass in the left upper lobe. It has a spiculated margin and abuts the visceral pleura. Malignancy certainly within the differential. Small amount of airspace disease in the posterior aspect of the right lower lobe could be area of pneumonia. Status post CABG. Harry Dacosta MD Abdomen/Pelvis CT 04/11/17 0000 Signed Impressions: Service Date/Time: Tuesday, April 11, 2017 14:36 - CONCLUSION: Patient' s had a cholecystectomy and likely ERCP with some air in the biliary tree. No free fluid or or free air is identified. The mesenteric vein is quite tortuous new since December 2014 of uncertain significance. G-tube in good position. Air space disease right lower lobe atelectasis versus pneumonia Harry Dacosta MD Last Impressions Chest X-Ray 04/11/17 0000 Signed Impressions: Service Date/Time: Tuesday, April 11, 2017 13:27 - CONCLUSION: 1. No acute abnormality or significant interval change. Mitch Nugent MD Abdomen/Pelvis CT 04/11/17 0000 Signed Impressions: Service Date/Time: Tuesday, April 11, 2017 14:36 - CONCLUSION: Patient' s had a cholecystectomy and likely ERCP with some air in the biliary tree. No free fluid or or free air is identified. The mesenteric vein is quite tortuous new since December 2014 of uncertain significance. G-tube in good position. Air space disease right lower lobe atelectasis versus pneumonia Harry Dacosta MD Objective Remarks GENERAL: This is a cachectic, chronically ill-appearing male alert and oriented refusing treatment SKIN: Warm and dry HEAD: Atraumatic. Normocephalic. EYES: Pupils equal and round. No scleral icterus. No injection or drainage. ENT: No nasal bleeding or discharge. Mucous membranes pink and moist. NECK: Trachea midline. No JVD. CARDIOVASCULAR: Normal rate, regular rhythm. RESPIRATORY: No accessory muscle use. Scattered rhonchi throughout lung gruber. Breath sounds equal bilaterally. GASTROINTESTINAL: Abdomen soft, non-tender, nondistended. No guarding. PEG tube in situ, clamped. MUSCULOSKELETAL: Extremities without clubbing, cyanosis, or edema. No obvious deformities. NEUROLOGICAL: Awake and alert. RASS 0. No gross focal/sensory deficits. Follows commands in all 4 extremities. 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 Tobacco abuse O2 dependency Coronary artery disease Atypical chest pain IN Type II Plan Neurologic: Neurochecks per ICU protocol Tylenol 650 mg every 6 hours when necessary for pain scale 3-6 Morphine 2 mg every 6 hours when necessary pain scale 6-10 Avoid all sedatives Respiratory: Obtain O2 sat greater than 92% Continue oxygen nasal cannula 1-4 liters, patient's home O2 dependency he reports is 2 L/m @ home Bronchodilators every 4 hours when necessary for wheezing Incentive spirometry 04/11-CT chest cavitary lesion left upper lobe highly suspicious of malignancy Cardiovascular: Obtain EKG Maintain MAP > 65 Telemetry-sinus rhythm Attempt to obtain records from [facility] regarding patient's cardiopulmonary history, Medical release obtained Begin metoprolol 5mg IV q 8hr, holding parameters Patient is not a candidate for any type of anticoagulation or ASA secondary to GI bleed, will not begin statin with notable elevated LFTs Obtain echo ( echo recorded 07/2012 @ [place] EF 65-70% with no RWMA) Cardiology following Dr Harman, continued elevation in troponin level 4.31->4.37 Renal: Apply Condom catheter -- Strict I/Os FEN/GI: Bolused with normal saline 500 cc x 2 upon admission Repeat bolused 500 cc 1 Normal saline IVF's dc'd NPO status Protonix drip GI following PEG tube to gravity LFTs- AST and alkaline phosphatase elevated, lipase level- normal, cholesterol/ HDL ratio WNL 2.12 Heme/ID: 04/11 Transfused 3 units packed red blood cells keep 4 units packed red blood cells on hold Monitor H&H every 6 hours Monitor CBC blood and sputum cultures NGTD influenza- negative, Legionella, pneumococcal urine antigen follow-up results Begin prophylactic antibiotics de-escalation upon culture results Endocrine: Glucose monitoring per ICU protocol, low dose regimen -- SSI Prophylaxis: GI Prophylaxis Protonix infusion DVT Prophylaxis -- SCDs Pharmacological prophylaxis contraindicated in the setting of GI bleeding Lines: Peripheral IVs providing adequate access. Central line if indicated. Level 3 Consult palliative care to define goals of care. CODE STATUS DNR 04/13: Patient requesting to leave hospital AMA since last night and awaiting son's arrival for pickup, refusing all forms of medical treatment currently. Will await Mr. Jd Ya arrival for discussion Physician Fariha Chowdhury MD Apr 13, 2017 07:08
[2017-04-13 07:58] LABS: AUTOMATED NEUTROPHIL # 13.8 TH/MM3 (1.8-7.7); BASOPHIL % 0.1 % (0.0-2.0); HEMATOCRIT 29.6 % (39.0-51.0); HEMO FLAGS DIFF FINAL; LYMPH % 1.2 % (9.0-44.0); LYMPHOCYTE # 0.2 TH/MM3 (1.0-4.8); MEAN CELL VOLUME 97.7 FL (80.0-100.0); MEAN CORPUSCULAR HEMOGLOBIN 32.9 PG (27.0-34.0); MEAN CORPUSCULAR HGB CONC 33.6 % (32.0-36.0); MONO % 5.1 % (0.0-8.0); NEUT % 93.6 % (16.0-70.0); PLATELET COUNT 126 TH/MM3 (150-450); RED BLOOD COUNT 3.03 MIL/MM3 (4.50-5.90); RED CELL DISTRIBUTION WIDTH 19.5 % (11.6-17.2); WHITE BLOOD COUNT 14.8 TH/MM3 (4.0-11.0)
[2017-04-13] MEDS: INSULIN ASPART SUPPLEMENTAL SCALE SQ SCH ×2 (08:00→12:00)
[2017-04-13 08:26] LABS: ALT (GPT) 65 U/L (12-78); ANION GAP 11 MEQ/L (5-15); AST (GOT) 62 U/L (15-37); BICARBONATE 21.5 MEQ/L (21.0-32.0); BLOOD UREA NITROGEN 59 MG/DL (7-18); CHLORIDE 116 MEQ/L (98-107); GLOMERULAR FILTRATION RATE 39 ML/MIN (>89); MAGNESIUM 2.3 MG/DL (1.5-2.5); POTASSIUM 4.5 MEQ/L (3.5-5.1); SODIUM (NA) 148 MEQ/L (136-145)
[2017-04-13 08:28] LABS: ALKALINE PHOSPHATASE 152 U/L (45-117); TOTAL BILIRUBIN ADULT 1.4 MG/DL (0.2-1.0)
[2017-04-13] MEDS: SODIUM CHLORIDE 0.9% FLUSH 10 ML FLUSH IV FLUSH SCH (09:00)
[2017-04-13] MEDS: DOCUSATE SODIUM 50 MG/SENNA 8.6 MG TAB PO SCH (09:00)
--- NOTE | 2017-04-13 11:17 | PD.CONS ---
Consult Service Palliative Care Consult Requested By Dr. Hawley. Primary Care Physician [facility] Reason for Consultation a. To assist with evaluation and management of symptoms including: Chest pain, nausea/vomiting and debility. b. To assist medical decision maker(s) with: better understanding of current medical conditions; weighing benefits/burdens of medical treatment options; making medical treatment decisions. . HPI History of Present Illness Mr. Ya is an 86-year-old male with a medical history significant for advanced cardiac disease to include CAD status post CABG, hypertension, throat cancer, lung cancer, dysphagia, COPD. Patient presented to ED on 04/11/17 for evaluation of chest pain. Chest CT revealing 2.7 x 1.5 cm partially cavitary mass in the left upper lobe, suspected malignancy. Hemoglobin and hematocrit 4.5/14.01. Patient was transfused 3 units of packed red blood cells. Abdomen/ pelvis CT revealing tortuous mesenteric vein. Patient is status post cholecystectomy and ERCP. PEG tube and good position. Patient was admitted for further management. GI consulted on 04/12/17. Hemoglobin and hematocrit 9.4/28.0 status post transfusion of 3 PRBC. Patient with history of nausea/vomiting, abdominal pain and black stools. Melanotic stool reported the hospital. Plan for EGD. Oncology, Dr. Guzman consulted on 04/12/17 for evaluation of lung mass with high suspicious for malignancy. No cancer workup recommended given patient's poor performance status, multiple comorbidities and current clinical state. Patient not likely a candidate for any systemic treatment given condition. Cardiology, Dr. Albright consulted for evaluation of angina with elevated troponins, history of CAD and CABG. Patient not a candidate for invasive ischemic workup and/or anticoagulation given life threatening bleeding. Palliative care has been consulted for further clarifications of goals of care. Patient with history of head and neck cancer, treated with chemotherapy and radiation. Patient developed dysphagia and has a gastrostomy tube. Significant coronary artery disease with increased symptoms burden. Patient and family reporting that patient has continue with progressive physical deconditioning and increased symptom burden to include significant weight loss, shortness of breath on minimal exertion, persistent chest pains. Patient refusing all forms of medical care overnight. He refuse wearing oxygen , medications, blood pressure monitoring and IV fluids. Patient with continued elevation of troponins, verbalizing now wishing for any aggressive treatment and requesting to leave the hospital AMA. Met with patient, son Iglesia and family friend Vicky at bedside. Patient verbal, alert and oriented x self, place and situation. Patient appears to have a good understanding of his complicated clinical condition. Patient provided a good history, he tells me that he is aware of his lung cancer but has been unable to receive any systemic therapy given his advanced age and debility. Medical update provided. Reviewed events leading to this hospitalization, clinical course and current medical management. Patient verbalizing not wishing to pursue any additional treatment. Reviewed CODE STATUS, patient electing DNR/DNI. Hospice philosophy and benefits introduced given patient's comfort-directed goals. Discussed with patient and family prognosis of days to weeks if illness run its natural course. Patient electing to transition to comfort-directed care, likely to discharge to hospice care center for symptom management of chest pain, nausea and vomiting. Family fully supportive of patient's wishes. Case discussed with Dr. Hawley and bedside RN. . Function/Cognitive Trajectory Patient residing independently prior to this hospitalization. Reported progressive decline to include activity tolerance, shortness of breath on minimal exertion, persistent chest pain. Patient reports being independent with ADLs, requiring some help from neighbors with household duties. Intermittently confusion reported by friends. . Review of Systems Constitutional: COMPLAINS OF: Fatigue, Weight loss, DENIES: Fever Endocrine: DENIES: Heat/cold intolerance Eyes: DENIES: Eye inflammation Ears, nose, mouth, throat: DENIES: Hearing loss, Throat pain, Ear Pain Respiratory: COMPLAINS OF: Cough, Shortness of breath Cardiovascular: COMPLAINS OF: Chest pain, Dyspnea on Exertion, DENIES: Lower Extremity Edema Gastrointestinal: COMPLAINS OF: Abdominal pain, Bloody stools, Nausea, Vomiting Genitourinary: COMPLAINS OF: Urinary incontinence Musculoskeletal: DENIES: Muscle aches, Back pain, Neck pain Integumentary: DENIES: Abnormal pigmentation Hematologic/Lymphatics: COMPLAINS OF: Bruising Immunologic/Allergic: DENIES: Eczema Neurologic: COMPLAINS OF: Abnormal gait, Poor Balance Psychiatric: COMPLAINS OF: Confusion, DENIES: Depression, Hallucinations, Agitation Past Family Social History Coded Allergies: levofloxacin (Unverified Adverse Reaction, Mild, Itching, 04/11/17) Past Medical History Arthritis CAD COPD Hyperlipidemia HTN Hx pancreatitis (unknown etiology Throat cancer 3-4 years ago, treated with radiation and chemo Dysphagia Hx biliary pancreatitis Gastric ulcer Pulmonary nodule, highly suspicious for lung malignancy. . Past Surgical History Appendectomy Gastrostomy tube placement CABG Lung biopsy Throat biopsy Laparoscopic cholecystectomy . Reported Medications Tylenol-Codeine #3 (Acetaminophen-Codeine) 300-30 mg Tab 1 Tab PO Q12HR PRN . Current Medications Medications (Trade) Dose Ordered Sig/Valentine Route Start Time Stop Time Status Last Admin Sodium Chloride 1,000 ml @ 100 mls/hr Q10H IV 04/11/17 16:22 04/12/17 12:38 (NS Flush) 2 ml UNSCH PRN IV FLUSH 04/11/17 16:30 (NS Flush) 2 ml BID IV FLUSH 04/11/17 21:00 04/12/17 20:42 (Morphine Inj) 2 mg Q4HR PRN IV PUSH 04/11/17 16:30 04/12/17 09:22 (Duoneb Neb) 1 ampule Q4HR NEB PRN INH 04/11/17 16:30 04/12/17 20:09 Miscellaneous Information 1 Q361D XX 04/11/17 16:30 04/11/17 16:30 (Chlorhexidine 2% Cloth) 3 pack Taper DAILY@04 TOP 04/12/17 04:00 04/08/18 03:59 04/12/17 00:55 (Chlorhexidine 2% Cloth) 3 pack UNSCH PRN TOP 04/11/17 16:30 (Marisol-Colace) 1 tab BID PO 04/11/17 21:00 04/12/17 20:42 (Milk Of Magnesia Liq) 30 ml Q12H PRN PO 04/11/17 16:30 (Senokot) 17.2 mg Q12H PRN PO 04/11/17 16:30 (Dulcolax Supp) 10 mg DAILY PRN RECTAL 04/11/17 16:30 (Lactulose Liq) 30 ml DAILY PRN PO 04/11/17 16:30 (D50w (Vial) Inj) 50 ml UNSCH PRN IV PUSH 04/11/17 17:15 (Glucagon Inj) 1 mg UNSCH PRN OTHER 04/11/17 17:15 (NovoLOG SUPPLEMENTAL SCALE) 1 ACHS SLIDING SCALE SQ 04/11/17 21:00 Pantoprazole Sodium 80 mg/ Sodium Chloride 100 ml @ 10 mls/hr Q10H IV 04/11/17 20:00 04/12/17 19:30 (Morphine Inj) 2 mg Q6H PRN IV PUSH 04/11/17 18:00 (Tylenol 650 Mg/ 20 ml Liq) 650 mg Q6H PRN PO 04/11/17 18:15 (Zofran Inj) 4 mg Q4H PRN IV PUSH 04/12/17 15:15 (Lopressor Inj) 5 mg Q6H PRN IV PUSH 04/12/17 15:45 04/12/17 16:05 (Trandate Inj) 10 mg Q4H PRN IV 04/12/17 20:45 Family History Patient declines knowing family history. Patient has 7 children who are alive and well. . Substance Use Tobacco: Smokes half a pack per day. Alcohol: hx EtOH use and abuse. Prescription med abuse: None. Illicits: None. . Psychosocial History Patient is originally from [facility]. Moved to [place] 14 years ago. He is , however has been from his for many years. Patient has 7 children, only in contact with the youngest son Jd Ya who resides in [place]. Patient is an [employer] . . Living Will: Never completed Health Care Surrogate: Copy in medical record Durable Power of Liquefaction Plant Operator: Never completed Date completed: 04/13/17. Health Care Surrogate(s): Patient designated his son Iglesia Ya was primary healthcare surrogate, alternate surrogate his friend Vicky Hammond. . Today's verbally stated goals: No code. DNR/DNI. Patient electing to transition to comfort-directed care with hospice. . Family/friends goals: Patient's family is supportive of patient's wishes. . Ethical and Legal Issues No ethical legal issues have been identified. . Physical Exam Vital Signs Date Time Temp Pulse Resp B/P (MAP) Pulse Ox O2 Delivery O2 Flow Rate FiO2 04/13/17 06:00 75 04/13/17 04:00 79 24 175/80 (111) 84 04/13/17 04:00 79 04/13/17 02:00 81 04/13/17 00:40 84 21 04/13/17 00:00 63 18 125/59 (81) 100 04/13/17 00:00 63 04/12/17 22:20 99 60 04/12/17 22:00 91 04/12/17 20:30 92 70 04/12/17 20:00 97.6 93 23 162/75 (104) 86 04/12/17 20:00 93 04/12/17 19:15 92 Simple Mask 10.00 04/12/17 18:00 77 44 180/80 (113) 74 04/12/17 17:00 71 27 175/81 (112) 92 04/12/17 16:47 71 25 181/83 (115) 98 04/12/17 16:00 85 39 189/82 (117) 90 04/12/17 15:43 83 29 172/78 (109) 89 04/12/17 14:06 77 19 178/81 (113) 93 04/12/17 12:00 98.0 84 27 140/67 (91) 92 04/12/17 11:00 71 14 172/75 (107) 100 Exam CONSTITUTIONAL/GENERAL: This is a frail looking, cachectic elderly male in no acute distress. TUBES/LINES/DRAINS: Nasal cannula, PIV. SKIN: No jaundice, rashes, or lesions. Ecchymoses on upper extremities. No wounds seen anteriorly. Skin temperature appropriate. Not diaphoretic. HEAD: Atraumatic. Normocephalic. EYES: Pupils equal and round and reactive. Extraocular motions intact. No scleral icterus. No injection or drainage. Fundi not examined. ENT: Hearing grossly normal. Nose without bleeding or purulent drainage. Moist oral mucosa. NECK: Trachea midline. Supple, nontender. CARDIOVASCULAR: Regular rate and rhythm. Peripheral pulses symmetric. No edema. RESPIRATORY/CHEST: Symmetric, unlabored respirations. Scattered rhonchi anteriorly. GASTROINTESTINAL: Abdomen soft, tender, mildly distended. PEG tube in place. Bowel sounds present. GENITOURINARY: Without palpable bladder distension. Irvin catheter in place. MUSCULOSKELETAL: Extremities without clubbing, cyanosis, or edema. No mottling or clubbing. NEUROLOGICAL: Awake and alert. Motor and sensory grossly within normal limits. Follows commands. Moves all extremities. PSYCHIATRIC: Calm and cooperative. . Diagnostic Tests Laboratory Laboratory Tests Test 04/11/17 13:16 04/11/17 14:15 04/11/17 17:50 04/12/17 00:15 White Blood Count 13.2 TH/MM3 (4.0-11.0) Red Blood Count 1.27 MIL/MM3 (4.50-5.90) Hemoglobin 4.5 GM/DL (13.0-17.0) 6.8 GM/DL (13.0-17.0) Hematocrit 14.1 % (39.0-51.0) 20.7 % (39.0-51.0) Mean Corpuscular Volume 111.4 FL (80.0-100.0) Mean Corpuscular Hemoglobin 35.4 PG (27.0-34.0) Mean Corpuscular Hemoglobin Concent 31.8 % (32.0-36.0) Red Cell Distribution Width 18.7 % (11.6-17.2) Platelet Count 122 TH/MM3 (150-450) Mean Platelet Volume 11.1 FL (7.0-11.0) Neutrophils (%) (Auto) 91.0 % (16.0-70.0) Lymphocytes (%) (Auto) 3.4 % (9.0-44.0) Monocytes (%) (Auto) 5.4 % (0.0-8.0) Eosinophils (%) (Auto) 0.1 % (0.0-4.0) Basophils (%) (Auto) 0.1 % (0.0-2.0) Neutrophils # (Auto) 12.1 TH/MM3 (1.8-7.7) Lymphocytes # (Auto) 0.5 TH/MM3 (1.0-4.8) Monocytes # (Auto) 0.7 TH/MM3 (0-0.9) Eosinophils # (Auto) 0.0 TH/MM3 (0-0.4) Basophils # (Auto) 0.0 TH/MM3 (0-0.2) CBC Comment AUTO DIFF Differential Total Cells Counted 100 Neutrophils % (Manual) 86 % (16-70) Band Neutrophils % 6 % (0-6) Lymphocytes % 6 % (9-44) Monocytes % 2 % (0-8) Neutrophils # (Manual) 12.1 TH/MM3 (1.8-7.7) Differential Comment FINAL DIFF MANUAL Platelet Estimate LOW (NORMAL) Platelet Morphology Comment NORMAL (NORMAL) Polychromasia 3.0 % (0.0-1.9) Prothrombin Time 11.2 SEC (9.8-11.6) Prothromb Time International Ratio 1.0 RATIO Activated Partial Thromboplast Time 25.0 SEC (24.3-30.1) Blood Urea Nitrogen 79 MG/DL (7-18) Creatinine 1.52 MG/DL (0.60-1.30) Random Glucose 111 MG/DL (74-106) Total Protein 5.9 GM/DL (6.4-8.2) 5.2 GM/DL (6.4-8.2) Albumin 2.4 GM/DL (3.4-5.0) 2.2 GM/DL (3.4-5.0) Calcium Level 7.7 MG/DL (8.5-10.1) Alkaline Phosphatase 150 U/L (45-117) 121 U/L (45-117) Aspartate Amino Transf (AST/SGOT) 44 U/L (15-37) 36 U/L (15-37) Alanine Aminotransferase (ALT/SGPT) 57 U/L (12-78) 47 U/L (12-78) Total Bilirubin 0.3 MG/DL (0.2-1.0) 0.8 MG/DL (0.2-1.0) Sodium Level 140 MEQ/L (136-145) Potassium Level 5.5 MEQ/L (3.5-5.1) 5.3 MEQ/L (3.5-5.1) Chloride Level 111 MEQ/L (98-107) Carbon Dioxide Level 22.8 MEQ/L (21.0-32.0) Anion Gap 6 MEQ/L (5-15) Estimat Glomerular Filtration Rate 44 ML/MIN (>89) Total Creatine Kinase 92 U/L (39-308) 90 U/L (39-308) Troponin I 0.63 NG/ML (0.02-0.05) 0.88 NG/ML (0.02-0.05) Lipase 252 U/L (73-393) 169 U/L (73-393) Urine Color YELLOW (YELLW/STRAW) Urine Turbidity CLEAR (CLEAR) Urine pH 5.0 (5.0-8.5) Urine Specific [place] 1.017 (1.002-1.035) Urine Protein 30 mg/dL (NEG-TRACE) Urine Glucose (UA) NEG mg/dL (NEG) Urine Ketones NEG mg/dL (NEG) Urine Occult Blood NEG (NEG) Urine Nitrite NEG (NEG) Urine Bilirubin NEG (NEG) Urine Urobilinogen LESS THAN 2.0 MG/DL (LESS Urine Leukocyte Esterase NEG (NEG) Urine RBC LESS THAN 1 /hpf (0-3) Urine WBC 1 /hpf (0-5) Urine Squamous Epithelial Cells <1 /hpf (0-5) Urine Hyaline Casts 10 /lpf (RARE) Urine Mucus FEW /lpf (OCC) Microscopic Urinalysis Comment CULT NOT INDICATED Nasal Screen MRSA (PCR) MRSA NOT DETECTED (NOT Direct Bilirubin 0.3 MG/DL (0.0-0.2) Indirect Bilirubin 0.5 MG/DL (0.0-0.8) Triglycerides Level 31 MG/DL (42-150) Cholesterol Level 72 MG/DL (120-200) LDL Cholesterol 32 MG/DL (0-99) HDL Cholesterol 33.9 MG/DL (40.0-60.0) Cholesterol/HDL Ratio 2.12 RATIO Test 04/12/17 04:57 04/12/17 14:05 04/12/17 18:00 04/12/17 21:53 White Blood Count 13.4 TH/MM3 (4.0-11.0) Red Blood Count 2.92 MIL/MM3 (4.50-5.90) Hemoglobin 9.4 GM/DL (13.0-17.0) 9.6 GM/DL (13.0-17.0) 9.8 GM/DL (13.0-17.0) Hematocrit 28.0 % (39.0-51.0) 28.3 % (39.0-51.0) 30.8 % (39.0-51.0) Mean Corpuscular Volume 96.1 FL (80.0-100.0) Mean Corpuscular Hemoglobin 32.3 PG (27.0-34.0) Mean Corpuscular Hemoglobin Concent 33.7 % (32.0-36.0) Red Cell Distribution Width 18.6 % (11.6-17.2) Platelet Count 112 TH/MM3 (150-450) Mean Platelet Volume 11.1 FL (7.0-11.0) Blood Urea Nitrogen 64 MG/DL (7-18) Creatinine 1.37 MG/DL (0.60-1.30) Random Glucose 104 MG/DL (74-106) Total Protein 6.2 GM/DL (6.4-8.2) Albumin 2.4 GM/DL (3.4-5.0) Calcium Level 8.2 MG/DL (8.5-10.1) Phosphorus Level 4.4 MG/DL (2.5-4.9) Magnesium Level 2.6 MG/DL (1.5-2.5) Alkaline Phosphatase 154 U/L (45-117) Aspartate Amino Transf (AST/SGOT) 41 U/L (15-37) Alanine Aminotransferase (ALT/SGPT) 55 U/L (12-78) Total Bilirubin 1.2 MG/DL (0.2-1.0) Sodium Level 143 MEQ/L (136-145) Potassium Level 4.9 MEQ/L (3.5-5.1) Chloride Level 113 MEQ/L (98-107) Carbon Dioxide Level 20.5 MEQ/L (21.0-32.0) Anion Gap 10 MEQ/L (5-15) Estimat Glomerular Filtration Rate 49 ML/MIN (>89) Total Creatine Kinase 124 U/L (39-308) Troponin I 4.31 NG/ML (0.02-0.05) 4.37 NG/ML (0.02-0.05) Test 04/12/17 23:06 04/13/17 05:17 04/13/17 05:47 Hemoglobin 10.1 GM/DL (13.0-17.0) 10.0 GM/DL (13.0-17.0) Hematocrit 31.9 % (39.0-51.0) 29.6 % (39.0-51.0) White Blood Count 14.8 TH/MM3 (4.0-11.0) Red Blood Count 3.03 MIL/MM3 (4.50-5.90) Mean Corpuscular Volume 97.7 FL (80.0-100.0) Mean Corpuscular Hemoglobin 32.9 PG (27.0-34.0) Mean Corpuscular Hemoglobin Concent 33.6 % (32.0-36.0) Red Cell Distribution Width 19.5 % (11.6-17.2) Platelet Count 126 TH/MM3 (150-450) Mean Platelet Volume 11.0 FL (7.0-11.0) Neutrophils (%) (Auto) 93.6 % (16.0-70.0) Lymphocytes (%) (Auto) 1.2 % (9.0-44.0) Monocytes (%) (Auto) 5.1 % (0.0-8.0) Eosinophils (%) (Auto) 0.0 % (0.0-4.0) Basophils (%) (Auto) 0.1 % (0.0-2.0) Neutrophils # (Auto) 13.8 TH/MM3 (1.8-7.7) Lymphocytes # (Auto) 0.2 TH/MM3 (1.0-4.8) Monocytes # (Auto) 0.8 TH/MM3 (0-0.9) Eosinophils # (Auto) 0.0 TH/MM3 (0-0.4) Basophils # (Auto) 0.0 TH/MM3 (0-0.2) CBC Comment DIFF FINAL Differential Comment Blood Urea Nitrogen 59 MG/DL (7-18) Creatinine 1.69 MG/DL (0.60-1.30) Random Glucose 96 MG/DL (74-106) Total Protein 5.9 GM/DL (6.4-8.2) Albumin 2.3 GM/DL (3.4-5.0) Calcium Level 8.1 MG/DL (8.5-10.1) Phosphorus Level 4.9 MG/DL (2.5-4.9) Magnesium Level 2.3 MG/DL (1.5-2.5) Alkaline Phosphatase 152 U/L (45-117) Aspartate Amino Transf (AST/SGOT) 62 U/L (15-37) Alanine Aminotransferase (ALT/SGPT) 65 U/L (12-78) Total Bilirubin 1.4 MG/DL (0.2-1.0) Sodium Level 148 MEQ/L (136-145) Potassium Level 4.5 MEQ/L (3.5-5.1) Chloride Level 116 MEQ/L (98-107) Carbon Dioxide Level 21.5 MEQ/L (21.0-32.0) Anion Gap 11 MEQ/L (5-15) Estimat Glomerular Filtration Rate 39 ML/MIN (>89) Result Diagram: 04/13/17 0517 04/13/17 0547 Microbiology Microbiology Date/Time Source Procedure Growth Status 04/12/17 18:05 Blood Peripheral Aerobic Blood Culture Pending Received 04/12/17 18:05 Blood Peripheral Anaerobic Blood Culture Pending Received 04/12/17 18:00 Blood Peripheral Aerobic Blood Culture Pending Received 04/12/17 18:00 Blood Peripheral Anaerobic Blood Culture Pending Received 04/12/17 16:30 Nasal Washing Influenza Types A,B Antigen (ROCIO) - Final NEGATIVE FOR FLU A AND B ANTIGEN.... Complete 04/12/17 16:30 Sputum Expectorated Sputum Gram Stain - Final Resulted 04/12/17 16:30 Sputum Expectorated Sputum Sputum Culture Pending Resulted 04/11/17 14:15 Urine Random Urine Legionella Antigen - Final PRESUMPTIVE NEGATIVE FOR LEGIONELLA P... Complete 04/11/17 14:15 Urine Random Urine Streptococcus pneumoniae Antigen (M - Final PRESUMPTIVE NEGATIVE FOR STREPTOCOCCU... Complete Imaging Last Impressions Chest X-Ray 04/11/17 0000 Signed Impressions: Service Date/Time: Tuesday, April 11, 2017 13:27 - CONCLUSION: 1. No acute abnormality or significant interval change. Mitch Nugent MD Chest CT 04/11/17 0000 Signed Impressions: Service Date/Time: Tuesday, April 11, 2017 17:14 - CONCLUSION: 2.7 x 1.5 cm partially cavitary mass in the left upper lobe. It has a spiculated margin and abuts the visceral pleura. Malignancy certainly within the differential. Small amount of airspace disease in the posterior aspect of the right lower lobe could be area of pneumonia. Status post CABG. Harry Dacosta MD Abdomen/Pelvis CT 04/11/17 0000 Signed Impressions: Service Date/Time: Tuesday, April 11, 2017 14:36 - CONCLUSION: Patient' s had a cholecystectomy and likely ERCP with some air in the biliary tree. No free fluid or or free air is identified. The mesenteric vein is quite tortuous new since December 2014 of uncertain significance. G-tube in good position. Air space disease right lower lobe atelectasis versus pneumonia Harry Dacosta MD Patient/Family Conference Present at Family Conference: Patient, son Iglesia, friend Ada. Family Conference Time (mins): 42 Family Conference Location: Bedside Issues Discussed: * Palliative care role, purpose, approach * Additional medical, psychosocial, and spiritual history * Patients general health, functional status, and cognitive changes in the months leading up to the current hospitalization * Patient/family understanding of the current medical problems -acute GI bleed, advanced cardiac disease, acute coronary syndrome, history of head and neck cancer, lung mass. * Patient/family understanding of prognosis -poor overall prognosis * Patients goals of care as best understood from advance directives and/or conversations and/or values * Current medical treatment options and benefits/burdens of those options * Likely scenarios comparing ongoing aggressive care with a transition to comfort measures only * Questions answered to the best of my ability * Palliative care contact information provided * Risks, benefits and limitations of CPR, intubation and mechanical ventilation * Hospice philosophy and benefits . Assessment and Plan Disease Oriented Problem List: (1) Acute blood loss anemia (2) CAD (coronary artery disease) (3) History of head and neck cancer (4) Elevated troponin (5) GI bleed (6) Lung mass (7) Physical deconditioning Symptom Scale: (1) Chest pain 0-10 Scale: 6 (2) Nausea & vomiting 0-10 Scale: 6 (3) Debility 0-10 Scale: Unable to quantify Pertinent Non-Medical Issues Psychosocial: Patient is originally from [facility]. Moved to [place] 14 years ago. He is , however has been from his for many years. Patient has 7 children, only in contact with the youngest son Jd Ya who resides in [place]. Patient is an [employer] . Spiritual: Yarsani kamilla. Legal: Designation of healthcare surrogate completed. Ethical issues impacting care: No ethical issues identified. . Important Contacts Patient's son Iglesia Ya (healthcare surrogate) Friend Vicky Cantuca (alternate healthcare surrogate) . Prognosis Mr. Ya is an 86-year-old male with a medical history significant for advanced cardiac disease to include CAD status post CABG, hypertension, throat cancer, lung cancer, dysphagia, COPD. Patient presented to ED on 04/11/17 for evaluation of chest pain. Chest CT revealing 2.7 x 1.5 cm partially cavitary mass in the left upper lobe, suspected malignancy. Hemoglobin and hematocrit 4.5/14.01. Cardiology consulted secondary to elevated troponins. Patient not a candidate for invasive ischemic workup. Oncology consulted, lung cancer workup not recommended given patient's poor performance status. Patient's overall prognosis is poor given her advanced age, found physical deconditioning , acute GI bleed, likely lung cancer and other multiple comorbidities. Patient appears hospice appropriate should he elects comfort-directed care, prognosis of days to weeks if illness run its natural course. . Code Status: No Code Plan * CODE STATUS: No code. DNR/DNI. Patient signed community DNR, copy in chart. * HEALTHCARE DECISION-MAKING: Patient participating in medical decision-making. He appears to have a good understanding of his complicated clinical condition , retains the ability to weight benefits versus burdens of treatment options. Assisted with completion of designation of healthcare surrogate, patient designated his son Iglesia Ya as memory healthcare surrogate, alternate surrogate is friend Vicky Hammond. * GOALS OF CARE: Patient electing to transition to comfort-directed care with hospice given overall poor prognosis and increased symptoms burden. Patient wishing to discharge to hospice care center for symptom management of persistent chest pain, nausea and vomiting. Family supportive of patient's wishes. * SYMPTOMS: = Chest pain, cardiac. Elevated troponin. Patient not a candidate for invasive ischemic workup. Morphine 2 mg IV available as needed. = Nausea/ vomitin:15 secondary to dysphagia. Zofran available needed. Patient may benefit from prokinetic agent such as Reglan 5 to 10mg qid. = Debility: Aggressive, likely to worsen. * Case discussed with Dr. Hawley, rn case manager hospice Eveline and bedside RN. * Palliative care contact information has been provided to patient and family. * Palliative care will continue to follow-up for further clarifications of goals of care as patient's clinical course continues to evolve. . Time Spent Total Floor Time (mins): 98 (Total time to include review and summarization of available medical records to include prior hospitalizations and oncology notes, of exam, case of care conversation with patient and family, assistance with completion of designation of healthcare surrogate and community DNR, case discussion with Dr. Hawley, rn case manager hospice and bedside RN.) >50% Counseling/Coord of Care: Yes Thank you for the opportunity to participate in the care of Mr. Ya. Attestation To help prompt me to consider important information that might be impacting today's encounter and assessment, information from prior notes written by myself or my colleagues may have been "brought forward" into today's note. My signature on this note, however, is an attestation that I personally performed the exam, history, and/or decision-making noted today, and, unless otherwise indicated, the interactions with patient, family, and staff as well as the review of records all occurred today. I also attest that the listed assessment and stated plan reflect my best clinical judgment today based on the combination of historical information, prior notes, and today's exam/ interactions. When time spent is documented, it refers only to time spent today by the signer, or if indicated, combined time spent today by collaborating physician/nurse practitioner. Sharon Schroeder Apr 13, 2017 11:17
[2017-04-13] MEDS: PANTOPRAZOLE INJ 80 MG in SODIUM CHLORIDE 0.9% INJ 100 ML IV SCH (12:39)
[2017-04-13 12:55] LABS: HEMATOCRIT 28.8 % (39.0-51.0); REVIEW FLAG FINAL
--- NOTE | 2017-04-13 13:18 | HHI.GIFU ---
Subjective Remarks Resting in bed. Pt has decided not to pursue upper endoscopy and would like to go with comfort measures. Hospice has been consulted. Objective Vitals I&O Vital Signs Date Time Temp Pulse Resp B/P (MAP) Pulse Ox O2 Delivery O2 Flow Rate FiO2 04/13/17 10:50 92 Nasal Cannula 3.00 04/13/17 06:00 75 04/13/17 04:00 79 24 175/80 (111) 84 04/13/17 04:00 79 04/13/17 02:00 81 04/13/17 00:40 84 21 04/13/17 00:00 63 18 125/59 (81) 100 04/13/17 00:00 63 04/12/17 22:20 99 60 04/12/17 22:00 91 04/12/17 20:30 92 70 04/12/17 20:00 97.6 93 23 162/75 (104) 86 04/12/17 20:00 93 04/12/17 19:15 92 Simple Mask 10.00 04/12/17 18:00 77 44 180/80 (113) 74 04/12/17 17:00 71 27 175/81 (112) 92 04/12/17 16:47 71 25 181/83 (115) 98 04/12/17 16:00 85 39 189/82 (117) 90 04/12/17 15:43 83 29 172/78 (109) 89 04/12/17 14:06 77 19 178/81 (113) 93 I/O 04/12/17 04/12/17 04/12/17 04/13/17 04/13/17 04/13/17 07:00 15:00 23:00 07:00 15:00 23:00 Intake Total 1370 ml 100 ml Output Total 700 ml 600 ml 1500 ml Balance 670 ml -600 ml -1500 ml 100 ml Intake Oral 75 ml IV Total 570 ml 100 ml Packed Cells 665 ml Blood Product IV Normal Saline Flush 60 ml Output Urine Total 700 ml 600 ml 1500 ml Laboratory Laboratory Tests Test 04/12/17 14:05 04/12/17 18:00 04/12/17 21:53 04/12/17 23:06 Hemoglobin 9.6 9.8 10.1 Hematocrit 28.3 30.8 31.9 Troponin I 4.31 4.37 Test 04/13/17 05:17 04/13/17 05:47 04/13/17 12:27 White Blood Count 14.8 Red Blood Count 3.03 Hemoglobin 10.0 9.4 Hematocrit 29.6 28.8 Mean Corpuscular Volume 97.7 Mean Corpuscular Hemoglobin 32.9 Mean Corpuscular Hemoglobin Concent 33.6 Red Cell Distribution Width 19.5 Platelet Count 126 Mean Platelet Volume 11.0 Neutrophils (%) (Auto) 93.6 Lymphocytes (%) (Auto) 1.2 Monocytes (%) (Auto) 5.1 Eosinophils (%) (Auto) 0.0 Basophils (%) (Auto) 0.1 Neutrophils # (Auto) 13.8 Lymphocytes # (Auto) 0.2 Monocytes # (Auto) 0.8 Eosinophils # (Auto) 0.0 Basophils # (Auto) 0.0 CBC Comment DIFF FINAL Differential Comment Blood Urea Nitrogen 59 Creatinine 1.69 Random Glucose 96 Total Protein 5.9 Albumin 2.3 Calcium Level 8.1 Phosphorus Level 4.9 Magnesium Level 2.3 Alkaline Phosphatase 152 Aspartate Amino Transf (AST/SGOT) 62 Alanine Aminotransferase (ALT/SGPT) 65 Total Bilirubin 1.4 Sodium Level 148 Potassium Level 4.5 Chloride Level 116 Carbon Dioxide Level 21.5 Anion Gap 11 Estimat Glomerular Filtration Rate 39 Date/Time Source Procedure Growth Status 04/12/17 18:05 Blood Peripheral Aerobic Blood Culture - Preliminary NO GROWTH IN 1 DAY Resulted 04/12/17 18:05 Blood Peripheral Anaerobic Blood Culture - Preliminary NO GROWTH IN 1 DAY Resulted 04/12/17 16:30 Nasal Washing Influenza Types A,B Antigen (ROCIO) - Final NEGATIVE FOR FLU A AND B ANTIGEN.... Complete 04/11/17 14:15 Urine Random Urine Legionella Antigen - Final PRESUMPTIVE NEGATIVE FOR LEGIONELLA P... Complete 04/11/17 14:15 Urine Random Urine Streptococcus pneumoniae Antigen (M - Final PRESUMPTIVE NEGATIVE FOR STREPTOCOCCU... Complete Imaging Last Impressions Chest X-Ray 04/11/17 0000 Signed Impressions: Service Date/Time: Tuesday, April 11, 2017 13:27 - CONCLUSION: 1. No acute abnormality or significant interval change. Mitch Nugent MD Chest CT 04/11/17 0000 Signed Impressions: Service Date/Time: Tuesday, April 11, 2017 17:14 - CONCLUSION: 2.7 x 1.5 cm partially cavitary mass in the left upper lobe. It has a spiculated margin and abuts the visceral pleura. Malignancy certainly within the differential. Small amount of airspace disease in the posterior aspect of the right lower lobe could be area of pneumonia. Status post CABG. Harry Dacosta MD Abdomen/Pelvis CT 04/11/17 0000 Signed Impressions: Service Date/Time: Tuesday, April 11, 2017 14:36 - CONCLUSION: Patient' s had a cholecystectomy and likely ERCP with some air in the biliary tree. No free fluid or or free air is identified. The mesenteric vein is quite tortuous new since December 2014 of uncertain significance. G-tube in good position. Air space disease right lower lobe atelectasis versus pneumonia Harry Dacosta MD Physical Exam HEENT: Normocephalic; atraumatic; no jaundice. CHEST: Resp. even/shallow, even. Diminished throughout. CARDIAC: RRR ABDOMEN: Soft, nondistended, nontender; no hepatosplenomegaly; bowel sounds are present in all four quadrants. PEG tube EXTREMITIES: No clubbing, cyanosis, or edema. SKIN: Normal; no rash; no jaundice. 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 Poor historian Assessment and Plan Plan ASSESSMENT: - Upper GIB, Melena. Hx gastric ulcer. Pt poor historian but does endorse n/v/ pain, black stools. He was noted to have a melanotic stool here at hospital. Flushed and aspirated clear secretions from PEG tube. Pt had severe anemia on admission, but responded appropriately to transfusion. Plan was for egd today, but patient declined and would like to pursue hospice care. - N/V, Abdominal pain. CT Scan abdomen and pelvis with IV contrast (04/11/17)-- -> S/P Cholecystectomy and likely ERCP with some air in biliary tree. No free fluid or free air identified. The mesenteric vein is quite tortuous new since December 2014 of uncertain significance. G tube good position. Air space right lower lobe atelectasis vs. pneumonia. ? Air in biliary tree r/t hx sphincterotomy. Not currently having pain. - Severe anemia, acute blood loss. HH 4.5/14.1 on admission. S/P 3 units PRBC - Elevated LFTs. T. Bili 1.2, AST 41, ALT 55, ALk Phosph 154. Will monitor. CT as above. - Dysphagia. 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 Has since had dysphagia and is unable to swallow solids, but able to take liquids. He has a PEG tube and gets Jevity 1.5 4 cans per day. - Atypical C.P, elevated troponin, CAD, Hyperlipidemia. Troponin I 0.03, 0.63, 0.88. - Leukocytosis. CT with RLL atelectasis vs. PNA. - CINDY. - COPD, HTN, Arthritis per primary - Report hx of lung cancer- not on treatment. - Hx throat cancer, s/p chemo/radiation PLAN: - Pt declined GI workup and would like comfort measures only. Hospice consulted - GI will sign off - Pt seen and examined by Dr. Alvarado and myself and this note is written on his behalf Salome Stuart Apr 13, 2017 13:18
--- NOTE | 2017-04-13 13:53 | HHI.DS ---
Discharge Summary Admission Date Apr 11, 2017 at 16:19 Admitting Diagnosis GI bleed, anemia, hyperkalemia, elevated troponin (1) Acute blood loss anemia ICD Code: D62 - Acute posthemorrhagic anemia Status: Acute (2) History of head and neck cancer ICD Code: Z85.89 - Personal history of malignant neoplasm of other organs and systems Status: Acute (3) Upper GI bleeding ICD Code: K92.2 - Gastrointestinal hemorrhage, unspecified Status: Acute (4) Hyperkalemia ICD Code: E87.5 - Hyperkalemia Status: Acute (5) Chest pain ICD Code: R07.9 - Chest pain, unspecified Status: Acute (6) Tobacco abuse ICD Code: Z72.0 - Tobacco abuse Status: Chronic (7) COPD (chronic obstructive pulmonary disease) ICD Code: J44.9 - COPD (chronic obstructive pulmonary disease) Status: Chronic (8) CAD (coronary artery disease) ICD Code: I25.9 - CAD (coronary artery disease) Status: Chronic (9) Severe malnutrition ICD Code: E41 - Severe malnutrition Status: Chronic (10) Dysphagia ICD Code: R13.10 - Dysphagia Status: Chronic Brief History This is a 86-year-old malnourished chronically ill-appearing male that presented to the ED for evaluation of bilateral chest pain. Patient states he has been having this chest pain for over a year. He states reports that he has lung cancer and stated that his medical records were here at [facility] however no records are found. The patient says that the only medications that she normally is prescribed for pain medications for his lung cancer which he does not take. The patient states that he has had episodes of nausea and vomiting he normally takes 4 cans of Jevity 1.5 daily via PEG and upon consumption today, he became nauseated and vomited which he approximates the entire amount. He states it was normal in color, no coffee ground emesis was noted.He reports chronic vomiting and chronic abdominal pain as well. 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 Patient states he is not undergoing any chemotherapy or radiation therapy for lung cancer. The patient was noted to have black tarry stools, Hemoccult positive and laboratory and imaging studies revealed a hemoglobin of 4 upon arrival to the ED . The patient was ordered 2 units PRBCs to be transfused .patient was previously admitted 04/09/11/03 with gastric ulcer GI bleeding and PEG was placed by Dr. Holden .The patient was also noted to be hyperkalemic and received insulin and D50, calcium chloride.He states that he is too elderly for any aggressive treatment. Critical care medicine was consulted. History PFSH Past Medical History Hx Anticoagulant Therapy: No Arthritis: Yes Asthma: No Autoimmune Disease: No Blood Disorders: No Heart Rhythm Problems: No Cancer: Yes (THROAT, LUNG) Cardiac Catheterization: Yes Cardiovascular Problems: Yes, mitral regurgitation High Cholesterol: Yes Chemotherapy: Yes Chest Pain: Yes Congestive Heart Failure: No COPD: Yes Cerebrovascular Accident: No Coronary Artery Disease: Yes Diabetes: No Diminished Hearing: No Endocrine: No GERD: Yes Glaucoma: No Genitourinary: No Headaches: No Hepatitis: No Hiatal Hernia: No Heparin Induced Thrombocytopenia: Yes Hypertension: Yes Immune Disorder: No Kidney Stones: No Medical other: Yes (DJD) Musculoskeletal: Yes Neurologic: No Psychiatric: No Reproductive: No Respiratory: Yes (LUNG CANCER) Immunizations Current: Yes Migraines: No Myocardial Infarction: Yes Pancreatitis: Yes Radiation Therapy: No Renal Failure: No Seizures: No Sickle Cell Disease: No Sleep Apnea: No Thyroid Disease: No Ulcer: Yes Tetanus Vaccination: Never Vaccinated PNEUMOCCOCAL Vaccine (Year): 2 Past Surgical History Abdominal Surgery: Yes (appendectomy, G TUBE INSERTED) AICD: No Appendectomy: Yes Arteriovenous Shunt: No Cardiac Surgery: Yes (TRIPLE BYPASS 2006) Cholecystectomy: No Coronary Artery Bypass Graft: Yes (TRIPLE BYPASS) Ear Surgery: No Endocrine Surgery: No Eye Surgery: No Genitourinary Surgery: No Gynecologic Surgery: No Insulin Pump: No Joint Replacement: No Neurologic Surgery: No Oral Surgery: No Pacemaker: No Thoracic Surgery: No Other Surgery: Yes (CABG, APPENDECTOMY) Social History Alcohol Use: No Tobacco Use: Yes (1 PPD) Substance Use: No Allergies-Medications Allergies-Medications (Allergen,Severity, Reaction): Coded Allergies: levofloxacin (Unverified Adverse Reaction, Mild, Itching, 04/11/17) Reported Meds & Prescriptions Reported Meds & Active Scripts Active Tylenol-Codeine #3 (Acetaminophen-Codeine) 300-30 mg Tab 1 Tab PO Q12HR PRN ROS Review of Systems Except as stated in HPI: all other systems reviewed are Neg CBC/BMP: 04/13/17 1227 04/13/17 0547 Significant Findings Laboratory Tests Test 04/11/17 13:16 04/11/17 14:15 04/11/17 17:50 04/12/17 00:15 White Blood Count 13.2 TH/MM3 (4.0-11.0) Red Blood Count 1.27 MIL/MM3 (4.50-5.90) Hemoglobin 4.5 GM/DL (13.0-17.0) 6.8 GM/DL (13.0-17.0) Hematocrit 14.1 % (39.0-51.0) 20.7 % (39.0-51.0) Mean Corpuscular Volume 111.4 FL (80.0-100.0) Mean Corpuscular Hemoglobin 35.4 PG (27.0-34.0) Mean Corpuscular Hemoglobin Concent 31.8 % (32.0-36.0) Red Cell Distribution Width 18.7 % (11.6-17.2) Platelet Count 122 TH/MM3 (150-450) Mean Platelet Volume 11.1 FL (7.0-11.0) Neutrophils (%) (Auto) 91.0 % (16.0-70.0) Lymphocytes (%) (Auto) 3.4 % (9.0-44.0) Neutrophils # (Auto) 12.1 TH/MM3 (1.8-7.7) Lymphocytes # (Auto) 0.5 TH/MM3 (1.0-4.8) Neutrophils % (Manual) 86 % (16-70) Lymphocytes % 6 % (9-44) Neutrophils # (Manual) 12.1 TH/MM3 (1.8-7.7) Platelet Estimate LOW (NORMAL) Polychromasia 3.0 % (0.0-1.9) Blood Urea Nitrogen 79 MG/DL (7-18) Creatinine 1.52 MG/DL (0.60-1.30) Random Glucose 111 MG/DL (74-106) Total Protein 5.9 GM/DL (6.4-8.2) 5.2 GM/DL (6.4-8.2) Albumin 2.4 GM/DL (3.4-5.0) 2.2 GM/DL (3.4-5.0) Calcium Level 7.7 MG/DL (8.5-10.1) Alkaline Phosphatase 150 U/L (45-117) 121 U/L (45-117) Aspartate Amino Transf (AST/SGOT) 44 U/L (15-37) Potassium Level 5.5 MEQ/L (3.5-5.1) 5.3 MEQ/L (3.5-5.1) Chloride Level 111 MEQ/L (98-107) Estimat Glomerular Filtration Rate 44 ML/MIN (>89) Troponin I 0.63 NG/ML (0.02-0.05) 0.88 NG/ML (0.02-0.05) Urine Protein 30 mg/dL (NEG-TRACE) Urine Mucus FEW /lpf (OCC) Direct Bilirubin 0.3 MG/DL (0.0-0.2) Triglycerides Level 31 MG/DL (42-150) Cholesterol Level 72 MG/DL (120-200) HDL Cholesterol 33.9 MG/DL (40.0-60.0) Test 04/12/17 04:57 04/12/17 14:05 04/12/17 18:00 04/12/17 21:53 White Blood Count 13.4 TH/MM3 (4.0-11.0) Red Blood Count 2.92 MIL/MM3 (4.50-5.90) Hemoglobin 9.4 GM/DL (13.0-17.0) 9.6 GM/DL (13.0-17.0) 9.8 GM/DL (13.0-17.0) Hematocrit 28.0 % (39.0-51.0) 28.3 % (39.0-51.0) 30.8 % (39.0-51.0) Red Cell Distribution Width 18.6 % (11.6-17.2) Platelet Count 112 TH/MM3 (150-450) Mean Platelet Volume 11.1 FL (7.0-11.0) Blood Urea Nitrogen 64 MG/DL (7-18) Creatinine 1.37 MG/DL (0.60-1.30) Total Protein 6.2 GM/DL (6.4-8.2) Albumin 2.4 GM/DL (3.4-5.0) Calcium Level 8.2 MG/DL (8.5-10.1) Magnesium Level 2.6 MG/DL (1.5-2.5) Alkaline Phosphatase 154 U/L (45-117) Aspartate Amino Transf (AST/SGOT) 41 U/L (15-37) Total Bilirubin 1.2 MG/DL (0.2-1.0) Chloride Level 113 MEQ/L (98-107) Carbon Dioxide Level 20.5 MEQ/L (21.0-32.0) Estimat Glomerular Filtration Rate 49 ML/MIN (>89) Troponin I 4.31 NG/ML (0.02-0.05) 4.37 NG/ML (0.02-0.05) Test 04/12/17 23:06 04/13/17 05:17 04/13/17 05:47 04/13/17 12:27 Hemoglobin 10.1 GM/DL (13.0-17.0) 10.0 GM/DL (13.0-17.0) 9.4 GM/DL (13.0-17.0) Hematocrit 31.9 % (39.0-51.0) 29.6 % (39.0-51.0) 28.8 % (39.0-51.0) White Blood Count 14.8 TH/MM3 (4.0-11.0) Red Blood Count 3.03 MIL/MM3 (4.50-5.90) Red Cell Distribution Width 19.5 % (11.6-17.2) Platelet Count 126 TH/MM3 (150-450) Neutrophils (%) (Auto) 93.6 % (16.0-70.0) Lymphocytes (%) (Auto) 1.2 % (9.0-44.0) Neutrophils # (Auto) 13.8 TH/MM3 (1.8-7.7) Lymphocytes # (Auto) 0.2 TH/MM3 (1.0-4.8) Blood Urea Nitrogen 59 MG/DL (7-18) Creatinine 1.69 MG/DL (0.60-1.30) Total Protein 5.9 GM/DL (6.4-8.2) Albumin 2.3 GM/DL (3.4-5.0) Calcium Level 8.1 MG/DL (8.5-10.1) Alkaline Phosphatase 152 U/L (45-117) Aspartate Amino Transf (AST/SGOT) 62 U/L (15-37) Total Bilirubin 1.4 MG/DL (0.2-1.0) Sodium Level 148 MEQ/L (136-145) Chloride Level 116 MEQ/L (98-107) Estimat Glomerular Filtration Rate 39 ML/MIN (>89) Hospital Course This is a 86-year-old malnourished chronically ill-appearing male that presented to the ED for evaluation of bilateral chest pain. Patient states he has been having this chest pain for over a year. He states reports that he has lung cancer and stated that his medical records were here at [facility] however no records are found. The patient says that the only medications that she normally is prescribed for pain medications for his lung cancer which he does not take. The patient states that he has had episodes of nausea and vomiting he normally takes 4 cans of Jevity 1.5 daily via PEG and upon consumption today, he became nauseated and vomited which he approximates the entire amount. He states it was normal in color, no coffee ground emesis was noted.He reports chronic vomiting and chronic abdominal pain as well. 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 Patient states he is not undergoing any chemotherapy or radiation therapy for lung cancer. The patient was noted to have black tarry stools, Hemoccult positive and laboratory and imaging studies revealed a hemoglobin of 4 upon arrival to the ED . The patient was ordered 2 units PRBCs to be transfused .patient was previously admitted 04/09/11/03 with gastric ulcer GI bleeding and PEG was placed by Dr. Holden .The patient was also noted to be hyperkalemic and received insulin and D50, calcium chloride.He states that he is too elderly for any aggressive treatment. Critical care medicine was consulted. Subjective: 04/12: Afebrile. Patient continues to have bouts of nausea, no hematemesis, episodes of melena since admission. Patient has received a total of 3 units of packed cells since admission with hemoglobin stabilized at 9.6. Plan for EGD in a.m. per GI. Hematology/oncology was consulted, patient was seen by Dr. Menendez but declines any further workup of cavitary lung lesion highly suspicious for malignancy. Troponin noted to have slight elevation, but in the setting of CINDY and sepsis. Patient had an episode atypical chest pain last evening , Cardiology has been consulted, an echo has been ordered, continue to trend troponin levels, and patient has been placed on beta lavon. 04/13: Hgb stable this a.m.. Overnight the patient has refused all forms of medical care. Patient refuses to wear oxygen current O2 saturation is in the high 89%, patient refusing medication, noted elevation in blood pressure.The patient's IVF was placed hold, given 40 mg Lasix and diuresed 1500cc. Patient noted to have elevation in troponins does not want any aggressive forms of treatment requesting to leave the hospital AMA. Son was contacted Mr. Iglesia Ya last night, and stated he would come and pick him up this a.m.. Unable to monitor blood pressure, or HR at this point patient has removed all monitors. The patient is alert and oriented 3 and cognizant of the situation. Mr. Iglesia Ga telephone this a.m., enroute to pick him up. 04/13: (1300)- Decison made with palliative care team (Sharon) decision made with patient and son to terminate all forms of medical treatment 2/2 multiple comorbidities. Patient decided to change CODE STATUS to DNR. Decision made to go to hospice medical facility. Patient will be discharged to Hospice this afternoon. Pt Condition on Discharge: Deteriorating Discharge Disposition: Hospice/Med Facility Discharge Instructions DIET: Follow Instructions for: As Tolerated, No Restrictions Activities you can perform: Continue Bedrest Fariha Hawley MD Apr 13, 2017 13:53
== END 2017-04-13 15:05 | disposition hospice, inpatient (51) | DRG 377 ==
LOC: NEPE 12:50 → NEDA 16:19 → HIMN 17:33
PROVIDERS: ADMIT Anesthesiology; ATTEND Anesthesiology
PROC: 30233N1 Transfusion of Nonautologous Red Blood Cells into Peripheral Vein, Percutaneous Approach (ICD-10-PCS; principal; 2017-04-11)
DX: K92.1 Melena (principal); E43 Unspecified severe protein-calorie malnutrition; I21.A1 Myocardial infarction type 2; N17.9 Acute kidney failure, unspecified; J18.9 Pneumonia, unspecified organism; J44.0 Chronic obstructive pulmonary disease with (acute) lower respiratory infection; Z99.81 Dependence on supplemental oxygen; C34.90 Malignant neoplasm of unspecified part of unspecified bronchus or lung; R13.19 Other dysphagia; D62 Acute posthemorrhagic anemia; Z68.1 Body mass index [BMI] 19.9 or less, adult; E87.5 Hyperkalemia; E86.0 Dehydration; I25.10 Atherosclerotic heart disease of native coronary artery without angina pectoris; M19.90 Unspecified osteoarthritis, unspecified site; E78.5 Hyperlipidemia, unspecified; K21.9 Gastro-esophageal reflux disease without esophagitis; I10 Essential (primary) hypertension; F17.210 Nicotine dependence, cigarettes, uncomplicated; R11.2 Nausea with vomiting, unspecified; Z66 Do not resuscitate; Z51.5 Encounter for palliative care; G89.29 Other chronic pain; R10.9 Unspecified abdominal pain; Z87.11 Personal history of peptic ulcer disease; Z95.1 Presence of aortocoronary bypass graft; Z92.3 Personal history of irradiation; Z93.1 Gastrostomy status; Z92.21 Personal history of antineoplastic chemotherapy; Z85.819 Personal history of malignant neoplasm of unspecified site of lip, oral cavity, and pharynx; I25.2 Old myocardial infarction
CPT/HCPCS: 36430; 71010; 71250; 74177; 80053; 80061; 80076; 81001; 82550; 82948; 83690; 83735; 84100; 84132; 84484; 85007; 85014; 85018; 85025; 85027; 85610; 85730; 86850; 86900; 86901; 86920; 87040; 87070; 87077; 87186; 87205; 87449; 87641; 87804; 93005; 94150; 94640; 94664; 96361; 96374; 96375; C9113; J0610; J1815; J1940; J2270; J2405; J7030; J7040; J7050; J7611; P9016; Q9967